=== PATIENT | female | born 1975 | race Two or more races ===

== ENCOUNTER → 2021-07-25 09:48 | Outpatient (BNVA) | payer OTHER, SELFPAY | PROVIDERS: PCP Nurse Practitioner Family; Referring Provider Nurse Practitioner Family; Visit Provider Physician Assistant ==

== ENCOUNTER → 2021-08-15 08:16 | Outpatient (BNVA) | payer OTHER, SELFPAY | PROVIDERS: PCP Nurse Practitioner Family; Visit Provider Surgery ==

== ENCOUNTER 2021-08-26 11:31 | Outpatient (REF) | payer OTHER, SELFPAY ==
--- NOTE | ~2021-08-26 | XR_ITS ---
EXAMINATION: XR CHEST CLINICAL INFORMATION: Morbid obesity. COMPARISON: None TECHNIQUE: 2 views of the chest were obtained. FINDINGS: Large body habitus. Lungs are well-inflated and clear. Trachea is midline in position. No interstitial disease, consolidation or mass. No pulmonary edema, pleural effusion or pneumothorax. Cardiac silhouette and pulmonary vessels are normal in size. The mediastinum and juan have normal contour. The visualized bones, and upper abdomen, are unremarkable. XR/XR chest 2V IMPRESSION: Lungs and mediastinum are normal. No acute cardiopulmonary abnormality.
--- NOTE | 2021-08-26 11:38 | ECG_ITS ---
Test Reason : obesity Blood Pressure : / mmHG Vent. Rate : 060 BPM Atrial Rate : 060 BPM P-R Int : 182 ms QRS Dur : 088 ms QT Int : 450 ms P-R-T Axes : 045 006 013 degrees QTc Int : 450 ms Poor data quality, interpretation may be adversely affected Normal sinus rhythm Normal ECG No previous ECGs available Referred By: Jaspal Kraus Electronically Signed By:KOSTA KHAN MD
[2021-08-26 12:02] LABS: MANUAL DIFF FLAG NO
[2021-08-26 12:39] LABS: Basophils Absolute Auto 0.1 X10*3/uL (0.0-0.2); Basophils Percent Auto 0.7 % (0-2); Eosinophils Absolute Auto 0.3 X10*3/uL (0.0-0.4); Hematocrit 42.5 % (37.0-47.0); Hemoglobin 13.7 g/dl (12.0-16.0); Imm Gran Abs Auto 0.02 X10*3/uL (0.00-0.03); Imm Gran Pct Auto 0.3 % (0.0-0.4); Lymphocytes Absolute Auto 2.2 X10*3/uL (1.2-4.9); Lymphocytes Percent Auto 29.2 % (20-40); Mean Corpuscular HGB Conc 32.2 g/dl (31.0-35.0); Mean Corpuscular Hemoglobin 26.9 pg (27.0-33.0); Mean Corpuscular Volume 83.3 fL (80.0-98.0); Mean Platelet Volume 10.1 fL (9.4-12.3); Monocytes Absolute Auto 0.3 X10*3/uL (0.1-1.2); Monocytes Percent Auto 4.2 % (2-11); Neutrophils Absolute Auto 4.7 x10*3/uL (2.0-8.3); Neutrophils Percent Auto 61.6 % (45-73); Platelet Count 293 X10*3/uL (160-400); Red Cell Distribution Width 13.1 % (11.0-16.0); White Blood Count 7.5 X10*3/uL (4.8-10.8)
[2021-08-26 12:55] LABS: Estimated Average Glucose 120 mg/dL; Hemoglobin A1c % 5.8 %
[2021-08-26 13:15] LABS: Alanine Aminotransferase 26 U/L (0-31); Albumin Level 4.5 g/dL (3.5-5.0); Alkaline Phosphatase 40 U/L (39-117); Anion Gap 14 (12-20); Aspartate Amino Transferase 18 U/L (5-31); Bilirubin Total 0.6 mg/dL (0.0-1.0); Blood Urea Nitrogen 13 mg/dL (9-16); Carbon Dioxide 27 mmol/L (22-29); Chloride 104 mmol/L (96-108); Cholesterol 156 mg/dL; Estimated Glomerular Filt Rate > 60; Glucose Random 92 mg/dL (60-115); HDL Cholesterol 28 mg/dL; Iron 97 mcg/dL (30-160); LDL Cholesterol Calculated 107 mg/dl; Percent Iron Saturation 28 % (15-50); Potassium 3.8 mmol/L (3.3-5.1); Sodium 141 mmol/L (135-145); Total Iron Binding Capacity 347 mcg/dL (228-428); Total Protein 7.3 g/dL (6.5-8.0); Triglycerides 106 mg/dL; Unsaturated Iron Binding 250 ug/dL
[2021-08-26 13:32] LABS: Insulin 13 uU/mL (2-29); Vitamin D 25-OH Total 19.2 ng/mL (>30)
[2021-08-26 13:45] LABS: Vitamin B12 289 pg/mL (200-900)
[2021-08-26 14:06] LABS: Ferritin 129 ng/mL (10-250)
[2021-08-27 16:41] LABS: Calcium (PTHI) 9.2 mg/dL (8.6-10.2); PTHI 74 pg/mL (14-64)
[2021-08-29 13:16] LABS: Vitamin B1 7 nmol/L (8-30)
[2021-08-29 14:31] LABS: Zinc 75 mcg/dL (60-130)
[2021-08-31 16:57] LABS: Vitamin A 46 mcg/dL (38-98)
== END 2021-08-26 11:32 | disposition home or self-care (01) ==
LOC: HO.XRAY 11:31
PROVIDERS: Visit Provider Surgery
DX: E66.01 Morbid (severe) obesity due to excess calories (principal)
CPT/HCPCS: 36415; 71046; 80053; 80061; 82306; 82607; 82728; 82746; 83036; 83525; 83540; 83970; 84425; 84443; 84590; 84630; 85025; 86140; 93005

== ENCOUNTER → 2021-09-17 07:59 | Outpatient (BNVA) | payer OTHER, SELFPAY | PROVIDERS: PCP Nurse Practitioner Family; Visit Provider Surgery ==

== ENCOUNTER → 2021-09-19 08:14 | Outpatient (BNVA) | payer OTHER, SELFPAY | PROVIDERS: PCP Nurse Practitioner Family; Visit Provider Dietitian, Registered | DX: E66.01 Morbid (severe) obesity due to excess calories (principal); Z68.41 Body mass index [BMI] 40.0-44.9, adult | CPT/HCPCS: 97802 ==

== ENCOUNTER → 2021-09-29 09:48 | Outpatient (BNVA) | payer OTHER, SELFPAY | PROVIDERS: PCP Nurse Practitioner Family; Referring Provider Surgery; Visit Provider Dietitian, Registered ==

== ENCOUNTER 2021-09-30 08:50 | Outpatient (REF) | payer OTHER, SELFPAY ==
--- NOTE | ~2021-09-30 | US_ITS ---
EXAMINATION: US COMPLETE ABDOMEN WITH LIVER ELASTOGRAPHY CLINICAL INFORMATION: Morbid obesity COMPARISON: None. TECHNIQUE: Real-time imaging of the abdominal viscera. Noninvasive ultrasound liver fibrosis assessment is performed using Li ElastPQ point quantification shear wave elastography (pSWE) with a C5-2 MHz transducer. Multiple elastography samples are obtained. FINDINGS: PANCREAS: Normal. The visualized pancreatic head and body are normal in appearance. The remainder of the pancreas is obscured from visualization by the overlying bowel gas. ABDOMINAL AORTA: The proximal, middle, and distal aortic segments are normal in caliber. INFERIOR VENA CAVA: Visualized portions are normal. LIVER: The liver is prominent in size measuring 19 cm in vertical span. No focal lesion or intrahepatic biliary duct dilatation. There is diffusely increased echogenicity of the liver consistent with fatty infiltration. The right lobe measures 19 cm in length. The left lobe measures 11.2 cm in length. Portal flow is hepatopedal Shear wave liver elastography median stiffness is 1.68 m/s (reference: normal median stiffness is 1.3 m/s or less). IQR/median stiffness to assess sampling precision is 0.18 (reference: good quality data set is IQR/median stiffness of 0.15 or less). GALLBLADDER: Status post cholecystectomy. COMMON BILE DUCT: Normal in caliber measuring 0.4 cm in diameter. RIGHT KIDNEY: Normal. No hydronephrosis. No renal calculi or focal parenchymal lesions. The kidney measures 12.3 cm in maximum dimension. LEFT KIDNEY: Normal. No hydronephrosis. No renal calculi or focal parenchymal lesions. The kidney measures 13 cm in maximum dimension. SPLEEN: Prominent in size. The spleen measures 12 cm in maximum dimension. FREE FLUID: None. US/US abdomen comp w elastography IMPRESSION: 1. Fatty infiltration of the liver. 2. Liver elastography: In the absence of other known clinical signs, measurements rule out compensated advanced chronic liver disease. If there are known clinical signs, further testing may be needed for confirmation. REFERENCE: Society of Radiologists in Ultrasound Liver Stiffness Thresholds (2020): LIVER STIFFNESS THRESHOLDS: *Liver Stiffness equal or less than 1.3 m/s: High probability of being normal. *Liver Stiffness less than 1.7 m/s: In the absence of other known clinical signs, rules out compensated advanced chronic liver disease. *Liver Stiffness 1.7-2.1 m/s: Suggestive of compensated advanced chronic liver disease but need further test for confirmation. *Liver Stiffness over 2.1 m/s: Rules in compensated advanced chronic liver disease. *Liver Stiffness over 2.4 m/s: Suggestive of clinically significant portal hypertension. QUALITY OF DATA SET: *IQR/Median value equal or less than 0.15 implies a quality data set. *IQR/Median value over 0.15 implies a poor quality data set. SIGNIFICANT CHANGE FROM PRIOR EXAM: Significant change if liver stiffness measurement is 10% or greater from prior exam. OTHER CONSIDERATIONS: The stage of liver fibrosis may be overestimated in the setting of acute hepatitis, liver inflammation, elevated liver function tests, hepatic vascular congestion, obstructive cholestasis, non-fasting state, and infiltrative diseases such as amyloidosis and lymphoma. In some patients with NAFLD, the liver stiffness thresholds for compensated advanced chronic liver disease may be lower. In causes other than viral hepatitis and NAFLD, liver stiffness thresholds are not well established.
== END 2021-09-30 08:51 | disposition home or self-care (01) ==
LOC: HO.US 08:50
PROVIDERS: PCP Nurse Practitioner Family; Visit Provider Surgery
DX: E66.01 Morbid (severe) obesity due to excess calories (principal)
CPT/HCPCS: 76705; 76981

== ENCOUNTER → 2021-10-06 09:49 | Outpatient (BNVA) | payer OTHER, SELFPAY | PROVIDERS: PCP Nurse Practitioner Family; Referring Provider Surgery; Visit Provider Dietitian, Registered ==

== ENCOUNTER → 2021-10-13 10:42 | Outpatient (BNVA) | payer OTHER, SELFPAY | PROVIDERS: PCP Nurse Practitioner Family; Referring Provider Physician Assistant; Visit Provider Dietitian, Registered | DX: E66.01 Morbid (severe) obesity due to excess calories (principal) | CPT/HCPCS: 97803 ==

== ENCOUNTER → 2021-10-20 07:54 | Outpatient (BNVA) | payer OTHER, SELFPAY | PROVIDERS: PCP Nurse Practitioner Family; Visit Provider Surgery ==

== ENCOUNTER → 2021-10-24 08:11 | Outpatient (BNVA) | payer OTHER, SELFPAY | PROVIDERS: PCP Nurse Practitioner Family; Referring Provider Surgery; Visit Provider Dietitian, Registered | DX: E66.9 Obesity, unspecified (principal); Z68.38 Body mass index [BMI] 38.0-38.9, adult | CPT/HCPCS: 97803 ==

== ENCOUNTER 2021-10-28 09:51 | Outpatient (REF) | payer OTHER, SELFPAY ==
[2021-10-30 14:49] LABS: H Pylori Breath Test Negative (Negative)
== END 2021-10-28 09:52 | disposition home or self-care (01) ==
LOC: HO.LNP 09:51
PROVIDERS: Visit Provider Surgery
DX: E66.01 Morbid (severe) obesity due to excess calories (principal)
CPT/HCPCS: 83013; 99211

== ENCOUNTER → 2021-10-29 10:38 | Outpatient (BNVA) | payer OTHER, SELFPAY | PROVIDERS: PCP Nurse Practitioner Family; Referring Provider Nurse Practitioner Family; Visit Provider Physician Assistant Surgical ==

== ENCOUNTER → 2021-11-06 13:41 | Outpatient (BNVA) | payer OTHER, SELFPAY | PROVIDERS: PCP Nurse Practitioner Family; Referring Provider Nurse Practitioner Family; Visit Provider Physician Assistant Surgical ==

== ENCOUNTER 2021-11-17 08:35 | Outpatient (REF) | payer OTHER, SELFPAY ==
--- NOTE | ~2021-11-17 | FL_ITS ---
EXAMINATION: XR GI SERIES CLINICAL INFORMATION: Morbid/severe obesity due to excess calories. COMPARISON: None. TECHNIQUE: Routine upper GI air-contrast study was performed. FINDINGS: Following oral administration of thick barium and effervescent granules, there is normal propagation of bolus from the oral cavity through the pharynx and esophagus and into the stomach without any evidence of obstruction, narrowing or stricture. On placing patient supine and prone lying, the course, caliber and peristalsis of the stomach and the duodenum are normal. No gastroesophageal reflux or hiatal hernia seen. The mucosal pattern of the stomach, duodenum and esophagus is normal. Incidental finding of russell in the right upper quadrant, likely cholecystitis. FLUOROSCOPY TIME: 2.6 minutes. DOSE AREA PRODUCT: 35.361 uGy-m2 (microgray-meter squared). FL/FL upper GI series IMPRESSION: Unremarkable upper GI examination.
== END 2021-11-17 08:36 | disposition home or self-care (01) ==
LOC: HO.XRAY 08:35
PROVIDERS: PCP Nurse Practitioner Family; Visit Provider Surgery
DX: Z01.818 Encounter for other preprocedural examination (principal); E66.01 Morbid (severe) obesity due to excess calories; I10 Essential (primary) hypertension; K21.9 Gastro-esophageal reflux disease without esophagitis; Z68.38 Body mass index [BMI] 38.0-38.9, adult; R11.0 Nausea; Z71.3 Dietary counseling and surveillance; Z79.899 Other long term (current) drug therapy
CPT/HCPCS: 74240

== ENCOUNTER → 2021-11-27 09:06 | Outpatient (BNVA) | payer OTHER, SELFPAY | PROVIDERS: PCP Nurse Practitioner Family; Referring Provider Nurse Practitioner Family; Visit Provider Surgery ==

== ENCOUNTER 2021-12-04 11:10 | Day surgery (SDC) | payer OTHER, SELFPAY ==
[2021-11-26 09:09] VITALS: BMI 38.2
[2021-11-27 12:28] LABS: MANUAL DIFF FLAG NO
[2021-11-27 13:03] LABS: Basophils Absolute Auto 0.1 X10*3/uL (0.0-0.2); Basophils Percent Auto 0.6 % (0-2); Eosinophils Absolute Auto 0.2 X10*3/uL (0.0-0.4); Eosinophils Percent Auto 1.8 % (0-4); Hematocrit 43.9 % (37.0-47.0); Hemoglobin 13.8 g/dl (12.0-16.0); Imm Gran Abs Auto 0.02 X10*3/uL (0.00-0.03); Imm Gran Pct Auto 0.2 % (0.0-0.4); Lymphocytes Absolute Auto 2.1 X10*3/uL (1.2-4.9); Lymphocytes Percent Auto 24.8 % (20-40); Mean Corpuscular HGB Conc 31.4 g/dl (31.0-35.0); Mean Corpuscular Hemoglobin 26.4 pg (27.0-33.0); Mean Corpuscular Volume 84.1 fL (80.0-98.0); Monocytes Absolute Auto 0.4 X10*3/uL (0.1-1.2); Monocytes Percent Auto 4.8 % (2-11); Neutrophils Absolute Auto 5.7 x10*3/uL (2.0-8.3); Neutrophils Percent Auto 67.8 % (45-73); Platelet Count 274 X10*3/uL (160-400); Red Blood Count 5.22 X10*6/uL (4.20-5.50); Red Cell Distribution Width 14.2 % (11.0-16.0); White Blood Count 8.4 X10*3/uL (4.8-10.8)
[2021-11-27 13:18] LABS: INTERNATIONAL NORM RATIO 1.2 (0.9-1.1); Prothrombin Time 13.1 SEC (9.9-13.0)
[2021-11-27 13:20] LABS: Estimated Average Glucose 114 mg/dL; Hemoglobin A1c % 5.6 %
[2021-11-27 13:21] LABS: Partial Thromboplastin Time 46.8 SEC (24.1-38.0)
[2021-11-27 13:44] LABS: Anion Gap 13 (12-20); Blood Urea Nitrogen 17 mg/dL (9-16); Carbon Dioxide 28 mmol/L (22-29); Chloride 103 mmol/L (96-108); Potassium 3.9 mmol/L (3.3-5.1); Sodium 140 mmol/L (135-145)
[2021-11-27 13:45] LABS: Alanine Aminotransferase 17 U/L (0-31); Albumin Level 4.5 g/dL (3.5-5.0); Alkaline Phosphatase 41 U/L (39-117); Aspartate Amino Transferase 9 U/L (5-31); Bilirubin Total 0.7 mg/dL (0.0-1.0); C Reactive Protein 0.75 mg/dL (< or = 0.50); Calcium 9.2 mg/dL (8.4-10.2); Cholesterol 202 mg/dL; Creatinine Clr Calc Pharmacy 101.5; Estimated Glomerular Filt Rate > 60; Glucose Random 86 mg/dL (60-115); HDL Cholesterol 34 mg/dL; LDL Cholesterol Calculated 146 mg/dl; Total Protein 7.3 g/dL (6.5-8.0); Triglycerides 111 mg/dL
[2021-11-27 13:54] LABS: Insulin 8 uU/mL (2-29)
--- NOTE | 2021-11-28 23:03 | MHC.SHP ---
Pre-Procedural Eval Section A Date of Service: 11/28/21 The patient is an INPATIENT: No The History & Physical has been completed within 30 days and I have reviewed it.: Yes Section B Chief Complaint: obesity Relevant Family History (Specify if Yes): No Relevant Social History: None Present Medications: None Medical History: No relevant PMH History of Previous Operations: No relevant previous surgery Allergies: Allergies Allergy/AdvReac Type Severity Reaction Status Date / Time No Known Allergies Allergy Verified 11/17/21 11:18 Review of Systems Sugical H&P ROS: Negative: Constitution, Cardiovascular, Respiratory, Neurological, Psychiatric, Hem-Onc, Allergic/Immunologic, Gastrointestinal, Genitourinary, Musculoskeletal, Integumentary, Endocrine and Eyes/Ears/Nose/Throat Exam Surgical H&P Exam: Normal: HEENT, Normal: Heart, Normal: Lungs, Normal: Extremities, Normal: Abdomen, Normal: Skin and Normal: Neurological Plan Diagnosis/Plan: Unchanged I have reviewed the history and physical and performed a pertinent physical examination on my patient. No changes have occurred unless specified.
--- NOTE | 2021-12-03 10:38 | P.CONAN_ITS ---
Documented by User: Deja Stevens NP 12/03/21 10:39 HPI - Anesthesia Eval Consult details Narrative: 46yo F for Gastrectomy Sleeve,EGD,poss diaphragmatic hernia,poss ventral hernia,poss open, PMFSH Active Problems Active Problems: All Active Problems (Updated 11/26/21 @ 09:07 by Vesta Tony RN) Vitamin B1 deficiency (Acute) Vitamin D deficiency (Acute) Vitamin B12 deficiency (Acute) Adjustment disorder, unspecified (Acute) Obesity (Acute) BMI 38.0-38.9,adult (Acute) BMI 37.0-37.9, adult (Acute) Leg pain (Acute) Back pain (Acute) Hypertension (Acute) GERD (gastroesophageal reflux disease) (Acute) Morbid obesity (Acute) Past Medical History Medical History Back pain COVID-19 vaccine series completed GERD (gastroesophageal reflux disease) Hypertension Leg pain Morbid obesity Surgical History Surgical History H/O umbilical hernia repair History of Hx laparoscopic cholecystectomy Social History Social History Are you a primary patient care assistant to a significant other at home: No Do you presently have visiting nurse or other home services: No Alcohol intake: never Patient Tobacco Use Status: Never used Tobacco Meds Allergies Allergy/AdvReac Type Severity Reaction Status Date / Time No Known Allergies Allergy Verified 12/04/21 11:26 Home Medications Medication Instructions Recorded Confirmed Last Taken Type famotidine 20 mg tablet 20 mg PO DAILY 08/15/21 12/04/21 11/13/21 History gabapentin 100 mg capsule 100 mg PO DAILY 08/15/21 12/04/21 11/20/21 History hydrochlorothiazide 25 mg tablet 25 mg PO DAILY 08/15/21 12/04/21 11/30/21 History sucralfate 1 gram tablet 1 g PO QIDACHS 08/15/21 11/17/21 Unknown History topiramate 50 mg capsule 50 mg PO DAILY 08/15/21 12/04/21 11/06/21 History sprinkle,extended release 24 hr Exam Exam Date and Time: December 03, 2021 1038 Height,Weight and Vital Signs: Height 5 ft 3 in Weight 97.976 kg Pertinent Lab Results Pertinent Lab Results: Laboratory Tests 11/27/21 11/27/21 11/27/21 12:15 12:15 12:15 WBC 8.4 RBC 5.22 Hgb 13.8 Hct 43.9 MCV 84.1 MCH 26.4 L MCHC 31.4 RDW 14.2 Plt Count 274 MPV 10.0 Immature Gran % (Auto) 0.2 Neut % (Auto) 67.8 Lymph % (Auto) 24.8 Alexander % (Auto) 4.8 Eos % (Auto) 1.8 Baso % (Auto) 0.6 Lymph # (Auto) 2.1 Alexander # (Auto) 0.4 Eos # (Auto) 0.2 Baso # (Auto) 0.1 Abs Immat Gran (auto) 0.02 Absolute Neuts (auto) 5.7 Absolute Nucleated RBC 0.000 Nucleated RBC % (auto) 0.0 PT 13.1 H INR 1.2 H APTT 46.8 H Sodium 140 Potassium 3.9 Chloride 103 Carbon Dioxide 28 Anion Gap 13 BUN 17 H Creatinine 0.78 Estim Creat Clear Calc 101.5 Estimated GFR > 60 Random Glucose 86 Estimat Average Glucose Hemoglobin A1c % Insulin Level 8 Calcium 9.2 Total Bilirubin 0.7 AST 9 D ALT 17 Alkaline Phosphatase 41 C-Reactive Protein 0.75 H Total Protein 7.3 Albumin 4.5 Triglycerides 111 Cholesterol 202 D LDL Cholesterol, Calc 146 HDL Cholesterol 34 D TSH 0.60 Blood Type Antibody Screen 11/27/21 11/27/21 12:15 12:15 WBC RBC Hgb Hct MCV MCH MCHC RDW Plt Count MPV Immature Gran % (Auto) Neut % (Auto) Lymph % (Auto) Alexander % (Auto) Eos % (Auto) Baso % (Auto) Lymph # (Auto) Alexander # (Auto) Eos # (Auto) Baso # (Auto) Abs Immat Gran (auto) Absolute Neuts (auto) Absolute Nucleated RBC Nucleated RBC % (auto) PT INR APTT Sodium Potassium Chloride Carbon Dioxide Anion Gap BUN Creatinine Estim Creat Clear Calc Estimated GFR Random Glucose Estimat Average Glucose 114 Hemoglobin A1c % 5.6 Insulin Level Calcium Total Bilirubin AST ALT Alkaline Phosphatase C-Reactive Protein Total Protein Albumin Triglycerides Cholesterol LDL Cholesterol, Calc HDL Cholesterol TSH Blood Type AB Positive Antibody Screen NEGATIVE Narrative Narrative: EKG 08/2021 Vent. Rate : 060 BPM ? ? Atrial Rate : 060 BPM ?? P-R Int : 182 ms? QRS Dur : 088 ms ? ? QT Int : 450 ms ? ? ? P-R-T Axes : 045 006 013 degrees ?? QTc Int : 450 ms ? Poor data quality, interpretation may be adversely affected Normal sinus rhythm Normal ECG No previous ECGs available Assessment and Plan Assessment Anesthesia Assessment: Chart Reviewed Documented by User: Michelle Mariscal MD 12/04/21 12:34 [facility] Active Problems Active Problems: All Active Problems (Updated 11/26/21 @ 09:07 by Vesta Tony RN) Vitamin B1 deficiency (Acute) Vitamin D deficiency (Acute) Vitamin B12 deficiency (Acute) Adjustment disorder, unspecified (Acute) Obesity (Acute) BMI 38.0-38.9,adult (Acute) BMI 37.0-37.9, adult (Acute) Leg pain (Acute) Back pain (Acute) Hypertension (Acute). No medications for several months since losing weight but took 1 pill few days ago because anxious and BP went up GERD (gastroesophageal reflux disease) (Acute) Morbid obesity (Acute) Snoring but no sleep study Past Medical History Medical History Back pain COVID-19 vaccine series completed GERD (gastroesophageal reflux disease) Hypertension Leg pain Morbid obesity Family History Family history of problems with anesthesia: No Surgical History Surgical History H/O umbilical hernia repair History of Hx laparoscopic cholecystectomy History of Problems with Anesthesia: Yes (PONV) Social History Social History Are you a primary patient care assistant to a significant other at home: No Do you presently have visiting nurse or other home services: No Alcohol intake: never Patient Tobacco Use Status: Never used Tobacco Meds Allergies Allergy/AdvReac Type Severity Reaction Status Date / Time No Known Allergies Allergy Verified 12/04/21 11:26 Home Medications Medication Instructions Recorded Confirmed Last Taken Type famotidine 20 mg tablet 20 mg PO DAILY 08/15/21 12/04/21 11/13/21 History gabapentin 100 mg capsule 100 mg PO DAILY 08/15/21 12/04/21 11/20/21 History hydrochlorothiazide 25 mg tablet 25 mg PO DAILY 08/15/21 12/04/21 11/30/21 History sucralfate 1 gram tablet 1 g PO QIDACHS 08/15/21 11/17/21 Unknown History topiramate 50 mg capsule 50 mg PO DAILY 08/15/21 12/04/21 11/06/21 History sprinkle,extended release 24 hr Exam Height,Weight and Vital Signs: Height 5 ft 3 in Weight 97.976 kg Vital Signs Temp Pulse Resp BP Pulse Ox 12/04/21 11:33 98.0 F 70 16 145/98 H 100 Pertinent Lab Results Pertinent Lab Results: Laboratory Tests 11/27/21 11/27/21 11/27/21 12:15 12:15 12:15 WBC 8.4 RBC 5.22 Hgb 13.8 Hct 43.9 MCV 84.1 MCH 26.4 L MCHC 31.4 RDW 14.2 Plt Count 274 MPV 10.0 Immature Gran % (Auto) 0.2 Neut % (Auto) 67.8 Lymph % (Auto) 24.8 Alexander % (Auto) 4.8 Eos % (Auto) 1.8 Baso % (Auto) 0.6 Lymph # (Auto) 2.1 Alexander # (Auto) 0.4 Eos # (Auto) 0.2 Baso # (Auto) 0.1 Abs Immat Gran (auto) 0.02 Absolute Neuts (auto) 5.7 Absolute Nucleated RBC 0.000 Nucleated RBC % (auto) 0.0 PT 13.1 H INR 1.2 H APTT 46.8 H Sodium 140 Potassium 3.9 Chloride 103 Carbon Dioxide 28 Anion Gap 13 BUN 17 H Creatinine 0.78 Estim Creat Clear Calc 101.5 Estimated GFR > 60 Random Glucose 86 Estimat Average Glucose Hemoglobin A1c % Insulin Level 8 Calcium 9.2 Total Bilirubin 0.7 AST 9 D ALT 17 Alkaline Phosphatase 41 C-Reactive Protein 0.75 H Total Protein 7.3 Albumin 4.5 Triglycerides 111 Cholesterol 202 D LDL Cholesterol, Calc 146 HDL Cholesterol 34 D TSH 0.60 Blood Type Antibody Screen 11/27/21 11/27/21 12:15 12:15 WBC RBC Hgb Hct MCV MCH MCHC RDW Plt Count MPV Immature Gran % (Auto) Neut % (Auto) Lymph % (Auto) Alexander % (Auto) Eos % (Auto) Baso % (Auto) Lymph # (Auto) Alexander # (Auto) Eos # (Auto) Baso # (Auto) Abs Immat Gran (auto) Absolute Neuts (auto) Absolute Nucleated RBC Nucleated RBC % (auto) PT INR APTT Sodium Potassium Chloride Carbon Dioxide Anion Gap BUN Creatinine Estim Creat Clear Calc Estimated GFR Random Glucose Estimat Average Glucose 114 Hemoglobin A1c % 5.6 Insulin Level Calcium Total Bilirubin AST ALT Alkaline Phosphatase C-Reactive Protein Total Protein Albumin Triglycerides Cholesterol LDL Cholesterol, Calc HDL Cholesterol TSH Blood Type AB Positive Antibody Screen NEGATIVE Laboratory Results - last 24 hr 12/03/21 12/04/21 12:25 11:11 Urine Test NEGATIVE COVID-19 (ELAYNE) Negative COVID-19 Clin Com See Note Airway Mallampati Class: II TM Dist: >3cm Neck ROM: Full Loose/Missing/Broken Teeth: Yes (Some missing) Heart: RRR Lungs: CTAB Assessment and Plan Assessment Anesthesia Assessment: Anesthesia Plan Discussed Final Anesthetic Review Family History of Problems with Anesthesia: No History of Problems with Anesthesia: Yes (PONV) NPO: Yes ASA Class: III Final Preanesthetic Review: No Changes in Pt Med Stat, Meds/Allgs Chart Reviewed, Consent Obtained/Reviewed and Anes Risks/Benef Reviewed Patient Risk: Intermediate Procedure Risk: Intermediate Assessment/Block/Sedation in SS: Assess/Block/Sedation-SS Anesthetic Plan Anesthetic Plan: GA Disposition: Standard PACU and Inp. Admit - Standard Bed
[2021-12-03 12:56] LABS: COVID-19 Test Negative (Negative); IDNOW Serial# 9DD0AD1C
[2021-12-04] VITALS (21 sets, daily range): BP systolic 145–183; BP diastolic 83–117; PULSE 59–103; RESP 14–19; TEMP 36.2–37; O2SAT 95–100
[2021-12-04 11:31] LABS: UPreg QC Valid YES; Urine Pregnancy NEGATIVE (NEGATIVE)
[2021-12-04] MEDS: Scopolamine 1.5 MG PATCH.TD.3 TRANSDERMA (12:47)
--- NOTE | 2021-12-04 15:59 | PM.OP ---
Brief Operative Note Date of Service: 12/04/21 Pre-op diagnosis: Severe obesity with comorbidities (see below) Post-op diagnosis: same Procedure: INITIAL PATIENT BMI ON PRESENTATION AT OUR OFFICE: 44.1 kg/m2 LAST BMI BEFORE SURGERY: 37.5 kg/m2 COMORBIDITIES: GERD, hypertension, back pain, liver steatosis, leg pain, liver fibrosis ?The patient presented to the Weight Management Program with significant obesity that was negatively impacting the patient's comorbidities as listed above.? The program is a phased program with a special focus on preoperative medical weight management to promote substantial weight loss and prepare the patients for the second phase of the program: bariatric surgery. The patient participated in an intensive weekly lifestyle ?intervention and exercise program during which the patient ?has lost between the initial office visit and the last preoperative visit 32 lbs, or 12.86% of initial actual body weight. It was deemed appropriate for the patient to now have bariatric surgery. In light of the current Covid-19 pandemic and the well documented strong association of obesity and increased risk of worse outcomes if infected with Covid-19 (REFERENCES:https://pubmed.ncbi.nlm.nih.gov/93651203/,?https://pubmed.ncbi.nlm.nih.gov/10293054/), any delay in undergoing bariatric surgery may lead to the patient's worsening health condition and increased?risk of more severe Covid-19 disease if infected. In addition a recent?study from [facility] published in [employer] on 10/13/2021 ([email or web address]) found that, among patients with obesity, substantial weight loss achieved with surgery was associated with improved outcomes of COVID-19 infection. The findings suggest that obesity can be a modifiable risk factor for the severity of COVID-19 infection. In addition, the patient met the BMI-criteria for bariatric surgery based on the BMI on initial presentation. The patient should not be penalized for achieving such weight loss because ?it is not sustainable long-term without surgical intervention and it was achieved in preparation for bariatric surgery ?under my direction and based on my published research ([email or web address]).[email or web address] and?https://www.soard.org/article/F6593-1757(47)86384-X/pdf) ?that a 10% preoperative weight loss improves long-term weight loss after surgery and reduces perioperative complications.? Insurance carriers such as [facility] have endorsed my recommendations ?and have included in their policies criteria to include a 10% preoperative weight loss requirement. PROCEDURE: Esophago-gastroscopy, laparoscopic sleeve gastrectomy and laparoscopic gastropexy INDICATIONS: This is a 46 year-old female who was electively scheduled for laparoscopic, possibly open sleeve gastrectomy. The risks and complications of the procedure were discussed with the patient in advance, particularly the possibility of ; pulmonary embolism; staple line leak; bleeding; GERD; cardiac, pulmonary, or renal complications; as well as long-term problems such as insufficient weight loss, vitamin deficiency, strictures, or ulcers. The patient understood all the risks, and was in agreement to proceed with surgery. DESCRIPTION OF PROCEDURE: After informed consent was obtained from the patient, the patient was given preoperative antibiotics, and was transferred to the operating room. After successful induction of general anesthesia, pneumatic compression devices were placed on both lower extremities. An upper endoscopy was performed next. The oropharynx and esophagus appeared to be within normal limits. There was no diaphragmatic hernia present consistent with the findings of the preoperative upper GI. The stomach was entered. Then after all fluid and air were suctioned and the stomach was fully decompressed, the scope was withdrawn and secured in the mid esophagus. The patient was then prepped and draped in the usual sterile manner, and abdominal access was established at the right upper quadrant with the Jayde technique. A 12 mm blunt port was inserted, and the abdomen was insufflated with CO2 to a pressure of 15 mmHg. Under direct visualization, additional ports were placed, specifically two 5 mm Versi-step ports to the left upper quadrant, and a 5 mm Versi-Step port to the right upper quadrant. 1% lidocaine plain was used to infiltrate all port sites as well as all fascia defects. There were adhesions in the abdomen from previous laparoscopic ventral hernia involving the omentum and the anterior abdominal wall. Those were not lysed as they did not interfere with our procedure.. Following that, the patient was placed in a steep reverse Trendelenburg position. An additional 5 mm port was placed to the right flank for the Mediflex retractor that was used to retract the left lobe of the liver. The gastro-esophageal fat pad was opened with the ultrasonic device (Thunderbeat, Olympus) and the anterior esophagus and hiatus were exposed. The angle of His was opened with the ultrasonic device the fundus of the stomach from any diaphragmatic and splenic attachments. I then opened the gastrocolic ligament between the transverse colon and the greater curvature of the stomach with the ultrasonic device to enter the lesser sac and facilitate the ligation of the short gastric vessels. I started at a mid-point along the greater curvature and using the Thunderbeat, all short gastric vessels were divided all the way to the angle of His until the left toni was completely dissected at its entirety. I then divided the gastro-colic ligament distally to a distance of about 3-4 cm proximal to the esophagus. The stomach was then divided transversely with one Endo CONG-45 purple, one CONG-45 orange loads and four CONG-60 articulating orange loads using the AEON stapler and loads. Every effort was made that the gastric sleeve had a tubular shape and an even caliber throughout. Once the sleeve resection was completed, the staple line of the gastric sleeve was reinforced with Hemoclips. The resected stomach was retrieved without difficulty from the Jayde port. A gastropexy was then performed in order to prevent postoperative GERD and partial gastric volvulus. Several interrupted 2.0 Surgidac sutures were placed between the sleeve's staple line and the previously divided greater omentum and gastro-colic ligament using the Endo-Stitch device. ?An upper endoscopy was performed. There was no narrowing at the GE junction. The scope was easily advanced all the way to the pylorus which was clearly visualized. There was no narrowing anywhere and the sleeve's caliber was even throughout. The sleeve's staple line was inspected and there was no evidence of ischemia, bleeding or dehiscence. At that point the gastroscope was withdrawn from the patient?s mouth while we were decompressing the bowel and the stomach from any remaining air. I looked into the lesser sac to see how the sleeve was situating and it was situating well. There was no bleeding from the staple line, spleen, or short gastric vessels. The Mediflex retractor was removed, and the undersurface of the liver was inspected and there was no bleeding. The patient was placed in supine position. I closed the fascial defect of the 12 mm port site with a figure of eight #1 Polysorb suture. Then 100 cc 0.25 % Marcaine plain with 10 mg of Dexamethasone were used to infiltrate the fascial closure as well as all skin incisions. At this point, the abdomen was deflated, all ports were removed under direct vision, and no bleeding was noted from any of the port sites. The skin incisions were irrigated with saline and were closed with 4-0 absorbable monofilament sutures. Steri-Strips and OpSites were used to cover all incisions. The patient was extubated and was transferred in stable condition to the recovery room for further care. I was present and performed all gomez parts of the procedure. Mr. Reeves was the corporate administrative assistant. There were no residents to assist with this case. David Kraus MD, PhD, FACS Surgeon: Jaspal Kraus MD Anesthesia: GETA, local and other (TAP block) Was an Service Dog Trainer used for this Procedure?: Yes Service Dog Trainer: Nikita Reeves Estimated blood loss (mL): 10 IV fluids (mL): 3,000 Urine output (mL): 0 (No Winter to record) Pathology: other (Stomach) Condition: stable Disposition: PACU
--- NOTE | 2021-12-04 16:04 | P.DS_ITS ---
DS: Providers Provider Date of Service: 12/05/21 Primary care physician: Laureen Hicks NP DS: Summary Hospital Course Hospital Course: ADMITTING DIAGNOSIS: morbid obesity, GERD, HTN ? DISCHARGE DIAGNOSIS: same, s/p laparoscopic sleeve gastrectomy ? PAST SURGICAL HISTORY: laparoscopic cholecystectomy, umbilical hernia repair, cesarian section ? PROCEDURE: upper endoscopy, laparoscopic sleeve gastrectomy, gastropexy ? DISCHARGE SUMMARY: ? History of Present Illness: ? The patient is a?46 year-old woman with a BMI of?44 kg/m2 and associated co- morbidities as described above. The patient had extensive work-up,lost?27.5 lbs preoperatively and was electively scheduled for laparoscopic, possible open sleeve gastrectomy and gastropexy. Risks and complications of the surgery were discussed with the patient in advance, particularly the possibility of , pulmonary embolism, anastomotic leak, bleeding, bowel injury, GERD, cardiac, renal or pulmonary complications. The patient understood all the risks and was in agreement with the surgical plan. ? Hospital Course: ? The patient underwent an uneventful laparoscopic sleeve gastrectomy with gastropexy on the day of admission. Postoperatively, the patient was transferred to the surgical floor. The patient received IV Acetaminophen and IV dilaudid for pain control. Patient was started on bariatric phase 1 diet POD #0. On postoperative day one, the patient was feeling well without nausea, vomiting, fevers, or tachycardia. The patient had some mild incisional pain and the abdomen was soft. ? On the morning of postoperative day one, the patient was continued on 1 ounce of water or ice every half hour. During the day, the patient did fairly well, having some incisional pain, but able to ambulate adequately and to tolerate liquids well. ? Since the patient is doing well, we decided that the patient was ready to be discharged. The patient was given instructions to follow-up with me next week and to call my office for any fever over 101, persistent abdominal pain, nausea, vomiting, GERD, symptoms of DVT such as calf tenderness, or leg swelling, or pulmonary embolism such as chest pain or shortness of breath. The patient was also instructed to drink 40-60 ounces of liquids per day using the 1-ounce cups. The patient had been given prescriptions for Tylenol for pain, Zofran prn for nausea, and pantoprazole and carafate previously. The patient was encouraged to ambulate and use the incentive spirometer. The patient was allowed to shower, but no baths, and encouraged to stay active at home. All of these instructions were given to the patient personally. All questions were answered and the patient understood all instructions, the instructions were also given to the patient in print. Time Spent with Patient Time attestation: Total time spent providing and/or coordinating discharge services: Discharge coordination time: Less than 30 minutes Quality: Stroke Does the patient have a stroke diagnosis?: No Physical Exam Vital Signs: Vital Signs: Last Vital Signs Temp 98.0 F 12/04/21 11:33 Pulse 70 12/04/21 11:33 Resp 16 12/04/21 11:33 BP 145/98 H 12/04/21 11:33 Pulse Ox 100 12/04/21 11:33 BMI result Body Mass Index 38.2 DS: Data Data Completed and Pending Pending studies at discharge: Pending at discharge 12/04/21 15:26 Surgical [PTH] Routine Labs on day of discharge: Laboratory Results - last 24 hr 12/04/21 11:11 Urine Test NEGATIVE Discharge Plan Discharge Patient Disposition: Home, Self-Care Referrals: Laureen Hicks MOTORCYCLE ASSEMBLER [Primary Care Provider] - 1 Week Discharge Medications: Continued pantoprazole 40 mg tablet,delayed release (DR/EC) 40 mg PO DAILY Qty: 30 2RF Held hydrochlorothiazide 25 mg tablet 25 mg PO DAILY 0RF Hold Instructions: until discussed with Dr Kraus Discontinued gabapentin 100 mg capsule 100 mg PO DAILY 0RF famotidine 20 mg tablet 20 mg PO DAILY 0RF sucralfate 1 gram tablet 1 g PO QIDACHS 0RF topiramate 50 mg cap,sprinkle,ER 24hr dose pack 50 mg PO DAILY 0RF thiamine HCl (vitamin B1) 100 mg tablet 100 mg PO DAILY Qty: 30 2RF cholecalciferol (vitamin D3) 125 mcg (5,000 unit) capsule 125 mcg PO DAILY Qty: 30 2RF mecobalamin (vitamin B12) 1,000 mcg tablet,disintegrating 1,000 mcg sublingual DAILY Qty: 30 2RF Rx Instructions: place tablet under tongue and allow to dissolve for at least30 secs before swallowing polyethylene glycol 3350 [Miralax] 17 gram powder in packet 17 g PO DAILY Qty: 14 0RF Rx Instructions: Mix each packet with 8oz of water and do 7 packets on 12/02/21 and another 7 packets on 12/03/21 Discharge Orders: Discharge Order (Routine); Ordered 12/05/21 Ordered By: Jaspal Kraus Activity Restrictions/Additional Instructions: No tub baths, sex or returning to work until discussed at first post op appointment. No exercise, alcohol, tobacco or illegal drug use. Continue to use incentive spirometer hourly while awake. Walk in home for 5- 10 minutes every 2 hours during the first week. Follow all instructions in the bariatric handbook and call with any questions.Discharge Instructions 1. Please call your doctor or come back to the emergency room should any new symptoms arise. 2. You will receive a courtesy call from [facility] 24-48 hours after discharge. 3. Activity: abstain from alcohol, practice limited stair climbing, no bending, no driving, no exercise, no illicit substances, no lifting, no sex, no tub bath, no work. 4. Diet: continue as discussed with Dr. Kraus. 5. Dressing Change/Wound Care: Your incision is covered by clear bandages and guaze underneath. If the area is tender, you may apply an ice pack for short intervals (no more than 20 minutes on, followed by at least 20 minutes off). Do not apply heat. Do not use creams, lotions, or topical antibiotics unless instructed to do so by your surgeon. These can cause infection or allergic reaction. 6. Call your doctor if: - Your temperature exceeds 101.5 F - You experience excessive pain or swelling - You have an unexpected reaction to medication - You have excessive bleeding - You experience continued vomiting/nausea - Your incision begins to separate - Your incision shows signs of infection such as increased redness, swelling, excessive pain, heat, or drainage (light blood or clear fluid is normal) 7. General instructions: No lifting greater than 5 lbs for the next 4 weeks. No driving within 24 hours of taking narcotic pain medications. If you do not move your bowels in the next 2 days, please take milk of magnesia over the counter. Please follow the post op diet and do not advance your diet until you are seen in the office in about 2 weeks. Please walk around your home every hour or two to prevent blood clots from forming in your legs. You do not need to wake from sleeping to walk. Please sleep in a bed or couch to prevent kinking at the hips and knees. Please take your incentive spirometer (your lung mascara molder) home with you and use it for the next few days to prevent pneumonias. You may shower, no hot tubs, baths or swimming pools. Please call the office with any questions or concerns such as increasing abdominal pain, fever, chills, shortness of breath, chest pain, leg pain or swelling, or redness or drainage from your incisions. Please stay on stage 3 diet which includes sugar free clear liquids such as ice pops and jello and broth and crystal light. Avoid all carbonation. Please drink 3 protein shakes with at least 25-30 grams of protein daily or 3 of the Celebrate 4:1 shakes which can be purchased in our office. The Celebrate shakes have all of the bariatric vitamins you need if you consume these shakes. If you are drinking other protein shakes, you will need to purchase the Celebrate multivitamins and calcium that we provide in the office (they will provide all the vitamins you need). Please make sure you are consuming at least 40-60 ounces of water in addition to your 3 protein shakes daily. Do not hesitate to contact the office with any questions at . The patient's medical history has been reviewed and they are considered low risk for post op DVT and therefore DVT prophylaxis is not considered necessary. Travel after surgery was reviewed. The patient has not disclosed any travel plans during the first 30 days after surgery and they have been advised that within the first 30 days after surgery any bus, plane, train or car travel over 2 hours in duration is contraindicated due to the possibility of developing blood clots from immobility. Any travel, needs to include periods of ambulation of 10 minutes in duration every 2 hours.? The patient was instructed to discuss any plans for travel during this period with their bariatric surgeon.
--- NOTE | 2021-12-04 16:04 | PM.PNGS ---
Subjective Subjective Date of Service: 12/05/21 Interval history: Patient has mild incisional pain, but was able to ambulate and use the incentive spirometer. She is tolerating phase 1 bariatric diet Physical Exam Vital Signs: Vital Signs: Last Vital Signs Temp 98.0 F 12/04/21 11:33 Pulse 70 12/04/21 11:33 Resp 16 12/04/21 11:33 BP 145/98 H 12/04/21 11:33 Pulse Ox 100 12/04/21 11:33 BMI result Body Mass Index 38.2 GI: Inspection: Yes normal to inspection, Yes incision (clean, dry and intact) and Yes obesity Extrem: Right lower extremity: normal to inspection (no calf tenderness) Left lower extremity: normal to inspection (no calf tenderness) Objective Data Active Medications Fentanyl (Fentanyl Citrate/Pf 100 Mcg/2 Ml Vial) 25 mcg IVPUSH Q5M PRN; Protocol PRN Reason: Pain, Moderate (Pain Scale 4-6 Hydromorphone HCl (Hydromorphone Hcl 0.5 Mg/0.5 Ml Syringe) 0.25 mg IVPUSH Q5M PRN; Protocol PRN Reason: Pain, Severe (Pain Scale 7-10) Lactated Ringer's (Lr) 1,000 mls @ 100 mls/hr IVCONT .Q10H SONNY Promethazine HCl 6.25 mg/ (Sodium Chloride) 50.25 mls @ 201 mls/hr IV ONCE PRN PRN Reason: Nausea and Vomiting Ondansetron HCl (Ondansetron Hcl 4 Mg/2 Ml Vial) 4 mg IVPUSH ONCE PRN PRN Reason: Nausea and Vomiting Labs CBC & Chem 7: 12/05/21 06:20 12/05/21 06:20 Labs: Laboratory Results - last 24 hr 12/04/21 11:11 Urine Test NEGATIVE Procedures Date of Service Date of Service: 12/05/21 Progress Note: A&P Assessment and plan (1) S/P laparoscopic sleeve gastrectomy: Status: Acute Assessment and Plan: s/p laparoscopic sleeve gastrectomy and gastropexy Doing well Check am labs. If OK, will discharge home? (2) Obesity: Status: Acute (3) BMI 37.0-37.9, adult: Status: Acute (4) GERD (gastroesophageal reflux disease): Status: Acute (5) Hypertension: Status: Acute (6) Back pain: Status: Acute (7) Leg pain: Status: Acute (8) Intra-abdominal adhesions: Status: Acute (9) Steatosis, liver: Status: Acute (10) Liver fibrosis: Status: Acute Fall Risk Details Current Medications: Current Medications Fentanyl (Fentanyl Citrate/Pf 100 Mcg/2 Ml Vial) 25 mcg IVPUSH Q5M PRN; Protocol PRN Reason: Pain, Moderate (Pain Scale 4-6 Hydromorphone HCl (Hydromorphone Hcl 0.5 Mg/0.5 Ml Syringe) 0.25 mg IVPUSH Q5M PRN; Protocol PRN Reason: Pain, Severe (Pain Scale 7-10) Lactated Ringer's (Lr) 1,000 mls @ 100 mls/hr IVCONT .Q10H SONNY Promethazine HCl 6.25 mg/ (Sodium Chloride) 50.25 mls @ 201 mls/hr IV ONCE PRN PRN Reason: Nausea and Vomiting Ondansetron HCl (Ondansetron Hcl 4 Mg/2 Ml Vial) 4 mg IVPUSH ONCE PRN PRN Reason: Nausea and Vomiting Time Spent With Patient Time: Total time spent is greater than 50% in coordination of care (as documented) at patient's floor/unit and/or counseling patient: Time with patient: less than 15 minutes Quality Stroke Does the patient have a stroke diagnosis?: No VTE Prior VTE?: No VTE Risk Level:: Surgical - moderate VTE Device Contraindication: Treatment Not Indicated VTE Drug Contraindication: N/A - Med Ordered
[2021-12-04] MEDS: Labetalol HCL 100 MG/20 ML VIAL 10 MG IVPUSH (16:26)
[2021-12-04] MEDS: Labetalol HCL 100 MG/20 ML VIAL IVPUSH ×2 (16:35→16:50)
[2021-12-04] MEDS: Metoclopramide HCl 10 MG/2 ML VIAL IVPUSH (17:13)
[2021-12-04 17:35] LABS: Hematocrit 42.5 % (37.0-47.0); Hemoglobin 13.7 g/dl (12.0-16.0)
[2021-12-04 17:48] LABS: Anion Gap 12 (12-20); Blood Urea Nitrogen 11 mg/dL (9-16); Calcium 8.7 mg/dL (8.4-10.2); Carbon Dioxide 26 mmol/L (22-29); Chloride 105 mmol/L (96-108); Creatinine Clr Calc Pharmacy 102.9; Estimated Glomerular Filt Rate > 60; Glucose Random 156 mg/dL (60-115); Potassium 3.2 mmol/L (3.3-5.1); Sodium 140 mmol/L (135-145)
[2021-12-04] MEDS: Lactated Ringers 1,000 ML 100 ML IVCONT (19:40)
[2021-12-04] MEDS: ondansetron HCL 4 MG/2 ML VIAL IVPUSH (19:43)
[2021-12-04] MEDS: Famotidine/PF 20 MG/2 ML VIAL IVPUSH (19:43)
[2021-12-04] MEDS: 0.9 % Sodium Chloride Flush 3 ML SYRINGE IVFLUSH ×2 (19:51→19:52)
[2021-12-04] MEDS: ceFAZolin Sodium/Dextrose,Iso 2 GM/50 ML PIGGYBACK IV (19:52)
[2021-12-05] MEDS: ondansetron HCL 4 MG/2 ML VIAL IVPUSH ×2 (02:46→09:34)
[2021-12-05] MEDS: HYDROmorphone HCl 0.5 MG/0.5 ML SYRINGE 0.25 MG IVPUSH (03:09)
[2021-12-05 03:11] VITALS: BP 156/88; PULSE 90; RESP 20; TEMP 36.7; O2SAT 95
[2021-12-05] MEDS: Lactated Ringers 1,000 ML 100 ML IVCONT (05:37)
[2021-12-05 06:27] LABS: MANUAL DIFF FLAG NO
[2021-12-05 06:32] LABS: Basophils Percent Auto 0.1 % (0-2); Hematocrit 39.4 % (37.0-47.0); Hemoglobin 12.9 g/dl (12.0-16.0); Imm Gran Abs Auto 0.04 X10*3/uL (0.00-0.03); Imm Gran Pct Auto 0.4 % (0.0-0.4); Lymphocytes Absolute Auto 0.9 X10*3/uL (1.2-4.9); Lymphocytes Percent Auto 9.9 % (20-40); Mean Corpuscular HGB Conc 32.7 g/dl (31.0-35.0); Mean Corpuscular Hemoglobin 27.2 pg (27.0-33.0); Mean Corpuscular Volume 82.9 fL (80.0-98.0); Mean Platelet Volume 10.2 fL (9.4-12.3); Monocytes Absolute Auto 0.2 X10*3/uL (0.1-1.2); Monocytes Percent Auto 2.3 % (2-11); Neutrophils Absolute Auto 7.8 x10*3/uL (2.0-8.3); Neutrophils Percent Auto 87.3 % (45-73); Platelet Count 266 X10*3/uL (160-400); Red Blood Count 4.75 X10*6/uL (4.20-5.50)
[2021-12-05 06:44] LABS: Anion Gap 13 (12-20); Blood Urea Nitrogen 11 mg/dL (9-16); Calcium 8.5 mg/dL (8.4-10.2); Carbon Dioxide 24 mmol/L (22-29); Chloride 104 mmol/L (96-108); Creatinine Clr Calc Pharmacy 113.1; Estimated Glomerular Filt Rate > 60; Glucose Random 131 mg/dL (60-115); Potassium 3.5 mmol/L (3.3-5.1); Sodium 137 mmol/L (135-145)
[2021-12-05 08:00] VITALS: BP 144/94; PULSE 87; RESP 18; TEMP 36.7; O2SAT 96
[2021-12-05] MEDS: Famotidine/PF 20 MG/2 ML VIAL IVPUSH (09:35)
[2021-12-05] MEDS: 0.9 % Sodium Chloride Flush 3 ML SYRINGE IVFLUSH (09:40)
--- NOTE | 2021-12-05 11:52 | MHC.CM.PN ---
PT LIVES WITH HER AND FOUR CHILDREN PT IS INDEPENDENT WITH ALL CARE AND HAS NO DME OR SERVICES PT WILL DC HOME TODAY WITH NO SERVICES FAMILY TO TRANSPORT
[2021-12-05 12:00] VITALS: BP 147/85; PULSE 75; RESP 18; TEMP 36.3; O2SAT 98
--- NOTE | 2021-12-05 13:34 | HO.POSTANES ---
Post Anesthesia Evaluation Post Anesthesia Evaluation Vital Signs: Vital Signs Temp Pulse Resp BP Pulse Ox 12/05/21 12:00 97.4 F 75 18 147/85 H 98 12/05/21 08:00 98.1 F 87 18 144/94 H 96 12/05/21 03:11 98.0 F 90 20 156/88 H 95 Anesthesia: General Endotracheal-GETA Mental Status: Awake Pain Control: Satisfactory Nausea/Vomiting: None Hydration: Adequate Anesthesia-Related Issues: No Anes. Related Issues
--- NOTE | 2021-12-05 14:28 | PC.NURSE ---
Dsg changed to abdomen per MS. DSD applied and tegaderm. All dressings now dry and intact.
== END 2021-12-05 14:29 | disposition home or self-care (01) ==
LOC: HO.SSS 16:04 → HO.S3 16:12
PROVIDERS: Nurse Practitioner; Physician Assistant Surgical; PCP Nurse Practitioner Family; Visit Provider Surgery
PROC: (CPT 43845; principal; 2021-12-04 13:00)
DX: E66.01 Morbid (severe) obesity due to excess calories (principal); Z68.37 Body mass index [BMI] 37.0-37.9, adult; I10 Essential (primary) hypertension; K66.0 Peritoneal adhesions (postprocedural) (postinfection); K21.9 Gastro-esophageal reflux disease without esophagitis; K76.0 Fatty (change of) liver, not elsewhere classified; M54.9 Dorsalgia, unspecified; M79.606 Pain in leg, unspecified; K74.00 Hepatic fibrosis, unspecified; Z90.49 Acquired absence of other specified parts of digestive tract; Z79.899 Other long term (current) drug therapy
CPT/HCPCS: 43775; 43659; 36415; 80048; 80053; 80061; 81025; 83036; 83525; 84443; 85014; 85018; 85025; 85610; 85730; 86140; 86850; 86900; 86901; 87635; 88307; 88342; 99024; A4649; J0131; J0690; J1100; J1170; J2250; J2405; J2550; J2765; J3010

== ENCOUNTER → 2021-12-09 14:25 | Outpatient (BNVA) | payer OTHER, SELFPAY | PROVIDERS: PCP Nurse Practitioner Family; Referring Provider Nurse Practitioner Family; Visit Provider Surgery | DX: E66.9 Obesity, unspecified (principal); Z98.84 Bariatric surgery status; Z68.36 Body mass index [BMI] 36.0-36.9, adult | CPT/HCPCS: 99212 ==

== ENCOUNTER → 2021-12-19 09:45 | Outpatient (BNVA) | payer OTHER, SELFPAY | PROVIDERS: PCP Nurse Practitioner Family; Referring Provider Nurse Practitioner Family; Visit Provider Physician Assistant Surgical ==

== ENCOUNTER → 2022-01-12 08:12 | Outpatient (BNVA) | payer OTHER, SELFPAY | PROVIDERS: PCP Nurse Practitioner Family; Visit Provider Surgery | DX: E66.9 Obesity, unspecified (principal); Z68.31 Body mass index [BMI] 31.0-31.9, adult | CPT/HCPCS: 99212 ==

== ENCOUNTER → 2022-02-09 08:06 | Outpatient (BNVA) | payer OTHER, SELFPAY | PROVIDERS: PCP Nurse Practitioner Family; Visit Provider Dietitian, Registered | DX: E66.9 Obesity, unspecified (principal); Z68.30 Body mass index [BMI] 30.0-30.9, adult; Z98.84 Bariatric surgery status; Z71.3 Dietary counseling and surveillance | CPT/HCPCS: 97803 ==

== ENCOUNTER → 2022-03-03 08:08 | Outpatient (BNVA) | payer OTHER, SELFPAY | PROVIDERS: PCP Nurse Practitioner Family; Referring Provider Surgery; Visit Provider Dietitian, Registered | DX: E66.9 Obesity, unspecified (principal); Z68.30 Body mass index [BMI] 30.0-30.9, adult | CPT/HCPCS: 97803 ==

== ENCOUNTER 2025-01-02 09:42 | Outpatient (REF) | payer MEDICAID, SELFPAY ==
[2025-01-02 11:26] LABS: MANUAL DIFF FLAG NO
[2025-01-02 11:54] LABS: Basophils Absolute Auto 0.1 X10*3/uL (0.0-0.2); Eosinophils Absolute Auto 0.3 X10*3/uL (0.0-0.4); Eosinophils Percent Auto 4.4 % (0-4); Hematocrit 38.9 % (37.0-47.0); Hemoglobin 12.7 g/dl (12.0-16.0); Imm Gran Abs Auto 0.04 X10*3/uL (0.00-0.03); Imm Gran Pct Auto 0.7 % (0.0-0.4); Lymphocytes Percent Auto 32.6 % (20-40); Mean Corpuscular HGB Conc 32.6 g/dl (31.0-35.0); Mean Corpuscular Hemoglobin 27.1 pg (27.0-33.0); Mean Corpuscular Volume 83.1 fL (80.0-98.0); Mean Platelet Volume 9.7 fL (9.4-12.3); Monocytes Absolute Auto 0.3 X10*3/uL (0.1-1.2); Monocytes Percent Auto 5.2 % (2-11); Neutrophils Absolute Auto 3.4 x10*3/uL (2.0-8.3); Neutrophils Percent Auto 56.1 % (45-73); Platelet Count 227 X10*3/uL (160-400); Red Blood Count 4.68 X10*6/uL (4.20-5.50); Red Cell Distribution Width 13.8 % (11.0-16.0); White Blood Count 6.1 X10*3/uL (4.8-10.8)
[2025-01-02 12:00] LABS: Estimated Average Glucose 108 mg/dL; Hemoglobin A1c % 5.4 % (<6.0); Total Hemoglobin (HGBA1C) 3409.9788 umol/L
[2025-01-02 12:56] LABS: Alanine Aminotransferase 25 U/L (0-31); Albumin Level 4.2 g/dL (3.5-5.0); Alkaline Phosphatase 39 U/L (39-117); Anion Gap 11 (12-20); Aspartate Amino Transferase 15 U/L (5-31); Bilirubin Total 0.4 mg/dL (0.0-1.0); Blood Urea Nitrogen 15 mg/dL (9-16); C Reactive Protein < 0.10 mg/dL (< or = 0.50); Calcium 8.9 mg/dL (8.4-10.2); Carbon Dioxide 26 mmol/L (22-29); Chloride 108 mmol/L (96-108); Cholesterol 201 mg/dL (<200); Estimated Glomerular Filt Rate > 60; Glucose Random 83 mg/dL (60-115); HDL Cholesterol 48 mg/dL (>40); Iron 102 mcg/dL (30-160); LDL Cholesterol Calculated 137 mg/dL (<100); Percent Iron Saturation 33 % (15-50); Potassium 4.2 mmol/L (3.3-5.1); Sodium 141 mmol/L (135-145); Total Iron Binding Capacity 306 mcg/dL (228-428); Total Protein 7.2 g/dL (6.5-8.0); Triglycerides 84 mg/dL (<150); Unsaturated Iron Binding 204 ug/dL
[2025-01-02 13:11] LABS: Ferritin 65 ng/mL (10-250); TSH reflex Free T4 1.13 uIU/mL (0.32-4.0)
[2025-01-02 13:13] LABS: Folate 9.4 ng/mL (> or = 4.0); Vitamin B12 242 pg/mL (200-900)
[2025-01-02 13:17] LABS: Insulin 6 uU/mL (2-29)
[2025-01-04 23:28] LABS: Zinc 58 mcg/dL (60-130)
[2025-01-05 11:53] LABS: Vitamin A 56 mcg/dL (38-98)
[2025-01-07 11:48] LABS: Vitamin B1 14 nmol/L (8-30)
== END 2025-01-02 09:43 | disposition home or self-care (01) ==
LOC: HO.LAB 09:42
PROVIDERS: PCP Nurse Practitioner Family; Visit Provider Physician Assistant Surgical
DX: Z98.84 Bariatric surgery status (principal); K76.0 Fatty (change of) liver, not elsewhere classified; E51.9 Thiamine deficiency, unspecified; E55.9 Vitamin D deficiency, unspecified; E53.8 Deficiency of other specified B group vitamins; I10 Essential (primary) hypertension
CPT/HCPCS: 36415; 80053; 80061; 82306; 82607; 82728; 82746; 83036; 83525; 83540; 84425; 84443; 84590; 84630; 85025; 86140; 99212

== ENCOUNTER 2025-01-02 09:42 | Outpatient (AMB) | payer MEDICAID, SELFPAY ==
--- NOTE | 2025-01-02 10:01 | A.OFFVIS_ITS ---
VS Expanded 01/02/25 10:04 BP 145/89 H Blood Pressure Location Rt brachial Blood Pressure Position Sitting Pulse 71 Pulse Source Pulse Oximeter Temp 96.8 F Temperature Source Temporal Artery Scan Pulse Oximetry 100 Oxygen Delivery Method Room Air Height 5 ft 3 in Weight 191 lb 9.6 oz BMI 33.9 Body Fat % 33.6 Body Fat Mass 64.4 Fat Free Mass 127.2 Visceral Fat Rating 8.0 Body Water % 47.3 Body Water Mass 90.6 Muscle Mass/Score 120.8 Basal Metabolic Rate/Score 1,717 Intake Visit Reasons: (OV) PO LSG 12/04/2021 *GLP-1* Senior Treasury Consultant Required: Yes Senior Treasury Consultant Services: Senior Treasury Consultant Present Senior Treasury Consultant Name: April flupetra - meir Allergies No Known Allergies Allergy (Verified 01/02/25 10:06) HPI Comments Details: Patient is a 49-year-old female who returns to the office today in follow-up. She is 3 years 1 month post sleeve gastrectomy performed on 12/04/2021. She was last seen in the office in 03/06/2022 with a weight of 171 lb and a BMI of 30.2. Weight today is 191.6 lb with a BMI of 33.9. She states that she has not been seen in several years as she had been doing well. She has been traveling back and forth to her home country of [facility]. She states that over the last 2 months she has noticed epigastric discomfort and reflux. SHe states that nothing has changed in her meal plan or types of food. She recently started a migraine medication and BP medication but does not know the names. She has also had increase in stress over the last 2 months. She has an appointment for the first time with on 01/11/25. She states that if she eats too much she has the pain. States she does not eat too quickly. Meal plan: (sometimes following) iced coffee 1 egg, tomato and cheese potato or rice sometimes w chicken chocolate, chips banana or grapes when not following the plan: tomato, bread, tea, rice, soup lots of snacks. exercise plan: sometimes walks outside, 3-4 days per week, 2 hours no gym due to taoist culture [facility] Medical History Liver fibrosis Steatosis, liver COVID-19 vaccine series completed Leg pain Back pain Hypertension GERD (gastroesophageal reflux disease) Morbid obesity Surgical History S/P laparoscopic sleeve gastrectomy History of H/O umbilical hernia repair Hx laparoscopic cholecystectomy Social History Are you a primary vp care management to a significant other at home: No Do you presently have visiting nurse or other home services: No Alcohol intake: never Patient Tobacco Use Status: Never used Tobacco service: No Current occupational status: unemployed Physical Exam Vital Signs: Last Vital Signs Temp 96.8 F 01/02/25 10:04 Pulse 71 01/02/25 10:04 BP 145/89 H 01/02/25 10:04 Pulse Ox 100 01/02/25 10:04 Oxygen Delivery Method Room Air 01/02/25 10:04 BMI result Body Mass Index 33.9 Const General: healthy appearing and no acute distress Resp Effort & Inspection: normal respiratory effort Auscultation: clear to auscultation bilaterally Cardio Rate: regular rate Rhythm: regular rhythm GI Auscultation: normal bowel sounds Extrem General: Yes normal to inspection Assessment & Plan Assessment & Plan (1) S/P laparoscopic sleeve gastrectomy: Code(s): Z98.84 - Bariatric surgery status Category: Surgical Plan: Patient wakes at 04:30. Recommend bedtime at 21:30. Using premier protein ready to drink shake per her request 6 oz of Premier protein shake mixed with 4 oz of unsweetened almond milk at 5-7 Repeat shake at 9-11 Atkins bar at 12-2 Meal at 3 pm with 6 forks of protein and 6 forks of vegetables. She states that she does not wish to eat after her meal at 15:00. She was additionally instructed to get a bariatric multivitamin and continue with the vitamin-D that she is taking at home. We will obtain postop labs. As far as exercise is concerned, she states that she is planning on buying a treadmill for home. She may continue to walk daily. We will have her return to the office in approximately 6 weeks. Orders: Orders Insulin Today E51.9 - Thiamine deficiency, unspecified, E53.8 - Deficiency of other specified B group vitamins, E55.9 - Vitamin D deficiency, unspecified, I10 - Essential (primary) hypertension, K76.0 - Fatty (change of) liver, not elsewhere classified, Z98.84 - Bariatric surgery status IRON PROFILE Today E51.9 - Thiamine deficiency, unspecified, E53.8 - Deficiency of other specified B group vitamins, E55.9 - Vitamin D deficiency, unspecified, I10 - Essential (primary) hypertension, K76.0 - Fatty (change of) liver, not elsewhere classified, Z98.84 - Bariatric surgery status Zinc Today E51.9 - Thiamine deficiency, unspecified, E53.8 - Deficiency of other specified B group vitamins, E55.9 - Vitamin D deficiency, unspecified, I10 - Essential (primary) hypertension, K76.0 - Fatty (change of) liver, not elsewhere classified, Z98.84 - Bariatric surgery status TSH reflex Free T4 Today E51.9 - Thiamine deficiency, unspecified, E53.8 - Deficiency of other specified B group vitamins, E55.9 - Vitamin D deficiency, unspecified, I10 - Essential (primary) hypertension, K76.0 - Fatty (change of) liver, not elsewhere classified, Z98.84 - Bariatric surgery status Hemoglobin A1c Today E51.9 - Thiamine deficiency, unspecified, E53.8 - Deficiency of other specified B group vitamins, E55.9 - Vitamin D deficiency, unspecified, I10 - Essential (primary) hypertension, K76.0 - Fatty (change of) liver, not elsewhere classified, Z98.84 - Bariatric surgery status Complete Blood Count Auto Diff Today E51.9 - Thiamine deficiency, unspecified, E53.8 - Deficiency of other specified B group vitamins, E55.9 - Vitamin D deficiency, unspecified, I10 - Essential (primary) hypertension, K76.0 - Fatty (change of) liver, not elsewhere classified, Z98.84 - Bariatric surgery status Lipid Panel Today E51.9 - Thiamine deficiency, unspecified, E53.8 - Deficiency of other specified B group vitamins, E55.9 - Vitamin D deficiency, unspecified, I10 - Essential (primary) hypertension, K76.0 - Fatty (change of) liver, not elsewhere classified, Z98.84 - Bariatric surgery status Comprehensive Met. Panel Today E51.9 - Thiamine deficiency, unspecified, E53.8 - Deficiency of other specified B group vitamins, E55.9 - Vitamin D deficiency, unspecified, I10 - Essential (primary) hypertension, K76.0 - Fatty (change of) liver, not elsewhere classified, Z98.84 - Bariatric surgery status Vitamin B12 and Folate Today E51.9 - Thiamine deficiency, unspecified, E53.8 - Deficiency of other specified B group vitamins, E55.9 - Vitamin D deficiency, unspecified, I10 - Essential (primary) hypertension, K76.0 - Fatty (change of) liver, not elsewhere classified, Z98.84 - Bariatric surgery status C Reactive Protein Today E51.9 - Thiamine deficiency, unspecified, E53.8 - Deficiency of other specified B group vitamins, E55.9 - Vitamin D deficiency, unspecified, I10 - Essential (primary) hypertension, K76.0 - Fatty (change of) liver, not elsewhere classified, Z98.84 - Bariatric surgery status Vitamin B1 Today E51.9 - Thiamine deficiency, unspecified, E53.8 - Deficiency of other specified B group vitamins, E55.9 - Vitamin D deficiency, unspecified, I10 - Essential (primary) hypertension, K76.0 - Fatty (change of) liver, not elsewhere classified, Z98.84 - Bariatric surgery status Vitamin A Today E51.9 - Thiamine deficiency, unspecified, E53.8 - Deficiency of other specified B group vitamins, E55.9 - Vitamin D deficiency, unspecified, I10 - Essential (primary) hypertension, K76.0 - Fatty (change of) liver, not elsewhere classified, Z98.84 - Bariatric surgery status Ferritin Today E51.9 - Thiamine deficiency, unspecified, E53.8 - Deficiency of other specified B group vitamins, E55.9 - Vitamin D deficiency, unspecified, I10 - Essential (primary) hypertension, K76.0 - Fatty (change of) liver, not elsewhere classified, Z98.84 - Bariatric surgery status Vitamin D 25-OH Total Today E51.9 - Thiamine deficiency, unspecified, E53.8 - Deficiency of other specified B group vitamins, E55.9 - Vitamin D deficiency, unspecified, I10 - Essential (primary) hypertension, K76.0 - Fatty (change of) liver, not elsewhere classified, Z98.84 - Bariatric surgery status
[2025-01-02 10:04] VITALS: BP 145/89; PULSE 71; TEMP 36; O2SAT 100; BMI 33.9
--- OUTSIDE RECORDS SUMMARY | 2025-01-02 10:40 | XMS_ITS | Encounter Summary ---
Author Organization [facility] Address [address] [place] [address] Care Team Providers Care Geospatial Specialist Name Role Phone Laureen Hicks JULIETH Primary Care Provider [phone] Reason for Visit * Reason Comments Behavioral Health Assessment Depression Encounter Details Date Type Department Care Team ([facility] Contact Info) Description 01/01/2016 / Visits [address] [phone] Rajni Nazario, COUNSELOR [address] [place] [id number] Social History Tobacco Use Types Packs/Day Years Used Date Smoking Tobacco: Never Smokeless Tobacco: Never Alcohol Use Standard Drinks/Week Comments No 0 (1 standard drink = 0.6 oz pur e alcohol) Comments No Sex and Gender Information Value Date Recorded Sex Assigned at Female 02/03/2018 10:06 AM PDT Legal Sex Female 4:16 PM PDT Gender Identity Female 02/03/2018 10:06 AM PDT Sexual Orientation Straight 02/03/2018 10 :06 AM PDT documented as of this encounter Plan of Treatment Upcoming Encounters Date Type Department Care Team (Late Contact Info) Description 01/09/2025 11:20 AM EDT Office Visit [facility] [address] [place] [phone] [place] [address] [place] [id number] Vincent Boykin [address] [place] [address] 01/11/2025 1:20 PM EDT Office Visit [facility] [address] [place] [phone] Taqueria Saunders PharmD [address] [place] [address] Vincent Boykin [address] [place] [address] documented as of this encounter Goals Goal Patient Goal Type Associated Problems Recent Progress Patient-Stated? Author Decrease soda or juice intake Diet No Lori Hillman RD Have 3 meals a day Diet No Lori Hillman RD Reduce portion size Diet No Lori Hillman RD Reduce sugar intake Diet No Lori Hillman RD documented as of this encounter Visit Diagnoses Not on filedocumented in this encounter Care Teams Geospatial Specialist Relationship Specialty Start Date End Date Laureen Hicks FNP [address] [place] [id number] PCP - General Internal Medicine 08/23/19 documented as of this encounter
--- OUTSIDE RECORDS SUMMARY | 2025-01-02 10:40 | XMS_ITS | Clinical Summary ---
Author Organization [facility] Address [address] [place] [address] Care Team Providers Care Nurse Ortho Name Role Phone Laureen Hicks JULIETH Primary Care Provider [phone] Source Comments PLEASE NOTE, if this patient is a minor, it may be UNLAWFUL to discuss sensitive information that is contained in these records (such as FAMILY PLANNING, MENTAL HEALTH or SUBSTANCE ABUSE) with the minor patient's parent or other person without the patient's specific authorization.[facility] Allergies No known active allergies Medications nystatin (MYCOSTATIN) 100,000 unit/gram powderIndication s:Candidiasis, intertrigo Apply topically 4 (four) times daily 15 g 1 9 Active scopolamine base (TRANSDERM-SCOP) 1 mg over 3 days patchIndications :Vertigo Place 1 Patch onto the skin every third day (every 72 hours) 10 Patch 1 0 Active biotin 5 mg tabIndications:F emale pattern hair loss Take 1 Tab by mouth once daily 90 Tab 2 0 Active minoxidiL (ROGAINE) 2 % external solutionIndicati ons:Female pattern hair loss Apply topically 2 (two) times daily For hair/scalp 60 mL 2 0 Active propranoloL (INDERAL) 10 mg tabletIndication s:Hypertension, unspecified type Take 1 Tablet by mouth 2 (two) times daily as needed for other reason (if BP >160/100) 30 Tablet 3 Active telmisartan (MICARDIS) 80 mg tabletIndication s:Hypertension, benign Take 1 Tablet by mouth once daily For BP ( increase in dose) 90 Tablet 1 4 Active SUMAtriptan succinate (IMITREX) 100 mg tabletIndication s:Frontal headache Take 1 Tablet by mouth once daily as needed for other reason (headache) If not better in 2 hour, then take 1 more tab. Max 2 tabs per day. 20 Tablet 2 4 Active cholecalciferol, vitamin D3, (VITAMIN D3) 1,250 mcg (50,000 unit) capsule TAKE 1 CAPSULE BY MOUTH ONE TIME PER WEEK 12 Capsule 3 4 Active fluticasone (FLONASE) 50 mcg/actuation nasal sprayIndications :Nasal congestion PLACE 1 SPRAY IN BOTH NOSTRILS ONCE DAILY FOR 14 DAYS 32 mL 1 4 Active amLODIPine (NORVASC) 2.5 mg tablet Take 2.5 mg by mouth once daily For BP 5 Active Active Problems Problem Noted Date Diagnosed Date Lipoma of liver 09/16/2024 Overview (09/16/2024): 08/30/[facility]: [facility]: CT of angiogram of abdomen: ANGIOGRAPHIC FINDINGS: No aortic dissection or aneurysm. Four vessel arch with independent takeoff of the left vertebral artery. No significant branch vessel stenosis. Pulmonary arteries are normal in caliber. No evidence of central pulmonary embolism on this study performed without dedicated technique. Abdominal aorta: No aortic aneurysm or dissection. Celiac axis: Patent. Superior mesenteric artery: Patent. Right renal artery: Patent. Left renal artery: Patent. Inferior mesenteric artery: Patent. Visualized iliac arteries: Patent. NON-ANGIOGRAPHIC FINDINGS Pipe Liner View Findings, Lines and Tubes: None. Trachea and Airways: Patent without evidence of tracheal or endobronchial lesion. Lungs and Pleura: Clear lungs. No effusion or pneumothorax. Mediastinum and juan: No mass or hematoma. No mediastinal or hilar lymphadenopathy. Small type I hiatal hernia. Heterogeneous appearance of the thyroid gland. Heart: Heart is normal in size. No pericardial effusion. No coronary arterial calcifications. Chest Wall Soft Tissues: Normal. Diaphragm: No significant abnormality. Liver: 2.0 x 3.3 cm fat density lesion in the right hepatic lobe, new from prior. Previously seen peripherally enhancing lesion is not well-visualized on today's study. Gallbladder: Absent consistent with prior cholecystectomy. Bile ducts: No biliary ductal dilation. Spleen: Normal. Accessory splenic tissue is incidentally noted. Pancreas: Mildly atrophic parenchyma. No ductal dilation or suspicious lesion. Adrenal glands: Normal. Kidneys and ureters: Punctate stone in left kidney upper pole. No right nephrolithiasis. No hydronephrosis or suspicious masses. Stomach, small bowel, and large bowel: Post surgical changes of the stomach. No evidence of obstruction or focal inflammation. Peritoneum and retroperitoneum: No ascites or pneumoperitoneum. No omental or mesenteric lesions. Lymph nodes: No enlarged lymph nodes. Abdominal wall: Unremarkable. Bones: No acute abnormality. Mild degenerative disc disease, more prominent in the lumbar spine. IMPRESSION: No acute nonemergent abnormality. 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 Financial difficulties 08/08/2024 S/P gastric sleeve procedure 11/18/2021 History of carpal tunnel surgery, bilateral 06/18 Shoulder tendinitis, right 12/22/2020 Chronic pain of both ankles 12/22/2020 Vertigo 11/23/2019 Multiple thyroid nodules 06/25/2019 Overview (08/23/2019): 05/10/19 - Thyroid U/S: LEFT thyroid midpole 3.1 x 1.9 x 2 cm largely solid nodule. TR 4 and would recommend biopsy. Abutting the above nodule in the LEFT thyroid lower pole there is a 1.1 x 0.7 x 0.7 cm hyperechoic solid nodule. It is also TR 4. Due to its small size, may consider f/u imaging to confirm stability. 07/20/19 - Seen by [facility]: Pt with 3 cm midpole nodule. Labs not available , will check thyroid labs, F/U 4 mos. Psychophysiological insomnia 02/22/2019 PTSD (post-traumatic stress disorder) 02/13/2019 Hepatic lesion 05/04/2017 Overview (05/04/2017): CT abd/pelvis 04/25/17 at [facility] = 16 mm liver lesion indeterminate Chronic left-sided low back pain with left-sided sciatica 01/25/2017 Overview (11/14/2020): SEES Dr Skinner. Rheum f/u Dr. Saavedra in [place] GERD (gastroesophageal reflux disease) 7 Sacralization of lumbar vertebra 07/07/2016 Overview (07/07/2016): Of L5 vertabra. F/u Rheum Dr. Luna in [place]. Chronic pain of both knees 11/19/2015 Overview (01/25/2017): [place] [facility] [place]dominal wall hernia, supra -umbilical s/p laproscopic repair 06/201512/10/2014 Vitamin D deficiency 11/12/2013 Overview (11/12/2013): =14. Bilateral carpal tunnel syndrome 11/10/2013 Overview (06/21/2015): F/U [facility] & seen by Neuro Dr. Moran. S/p left carpal tunnel release 12/30/14. Morbid obesity ([facility]) 09/28/2013 Resolved Problems Problem Noted Date Diagnosed Date Resolved Date Vagina itching 03/13/2015 11/19/2015 Overview (03/13/2015): Tx with terazol # cream Encounters Date Type Department Care Team Description 11/21/2024 10:00 AM EST Telemedicine Visit [address] [phone] Laureen Hicks FNP [place], [place] Syncope, unspecified syncope type (Primary Dx); Hypertension, benign; Psychogenic nonepileptic seizure; Atypical migraine; Thyroid nodule; Tachycardia 10/10/2024 8:40 AM EST Telemedicine Visit [address] [phone] Laureen Hicks FNP Hypertension, benign (Primary Dx); Generalized abdominal pain; Chronic bilateral low back pain without sciatica; Chronic pain of both knees; Pap smear for cervical cancer screening; Encounter for screening mammogram for malignant neoplasm of breast 10/10/2024 Travel from Last 3 Months Immunizations Name Administration Dates Next Due Flu, Preservative Free 11/14/2021 Hep B, Adult/Adol (ENERGIX/RECOMBIVAX) 4,12/11/2013,11/10/2013 History Of Varicella 09/28/2013 INFLUENZA, SEASONAL, INJECTA BLE, PRESERVATIVE FREE 07/10/2013 MMR (MMR II/Priorix) 11/10/2013 MMRV, Live (Proquad) 09/28/2013 PFIZER COVID VACCINE, PURPLE CAP, 12+ 11/14/2021 ,03/27/2021,03/06/2021 Pfizer-BioNTech COVID-19 Vac cine Bivalent, (DURBIN PFIZER-BIONTECH COVID-19 VACCINE BIVALENT, (DURBIN CAP 11/20/2022 TDAP 01/18/2024,09/28/2013 Td (adult), 5 Lf tetanus tox oid, preservative free 12/11/2013 Family History Medical History Relation Name Comments Hypertension Father Diabetes Mother Hypertension Mother Relation Name Status Comments Father Mother Social History Tobacco Use Types Packs/Day Years Used Date Smoking Tobacco: Never Smokeless Tobacco: Never Tobacco Cessation:Counseling Given: Not Answered Alcohol Use Standard Drinks/Week Comments No 0 (1 standard drink = 0.6 oz pur e alcohol) Social Connections Answer Date Recorded Connectedness 1 08/08/2024 Financial Resource Strain Answer Date R ecorded Financial Resource Strain 2 2023 Stress Answer Date Recorded Stress 1 08/08/2024 Physical Activity Answer Date Recorded Physical Activity 0 08/21/2020 Food Insecurity Answer Date Recorded Food 1 08/08/2024 Transportation Needs Answer Date Record ed Transportation 1 08/08/2024 Housing Stability Answer Date Recorded Housing 1 08/08/2024 Safety and Environment Answer Date Rashid rded Safety 1 08/08/2024 Utilities Answer Date Recorded Utilities 1 08/08/2024 Employment Answer Date Recorded Stress 1 08/08/2024 Comments No Sex and Gender Information Value Date Recorded Sex Assigned at Female 02/03/2018 10:06 AM PDT Legal Sex Female 4:16 PM PDT Gender Identity Female 02/03/2018 10:06 AM PDT Sexual Orientation Straight 02/03/2018 10 :06 AM PDT Last Filed Vital Signs Vital Sign Reading Time Taken Comments Blood Pressure 148/90 09/12/2024 4:49 PM EST Pulse 67 09/12/2024 4:49 PM EST Temperature 36.7 ??C (98.1 ??F) 09/12/2024 4:49 PM ES T Respiratory Rate 16 09/12/2024 4:49 PM EST Oxygen Saturation 98% 09/12/2024 4:49 PM EST Inhaled Oxygen Concentration - - Weight 86.2 kg (190 lb) 09/12/2024 4:49 PM EST Height 160 cm (5' 3 ) 09/12/2024 4:49 PM EST Body Mass Index 33.66 09/12/2024 4:49 PM EST Plan of Treatment Upcoming Encounters Date Type Department Care Team (Late st Contact Info) Description 01/09/2025 11:20 AM EDT Office Visit [address] [phone] Vivien Guallpa MD [address] [place] [id number] Vincent Boykin [address] [place] [id number] 01/11/2025 1:20 PM EDT Office Visit [address] [phone] Taqueria Saunders, PharmD [address] [place] [address] Vincent Boykin [address] [place] [phone] Health Maintenance Due Date Last Done Comments CT Colonography 2021 Colonoscopy 2021 Colorectal Cancer Screening 2021 FIT/gFOBT 2021 Fecal DNA 2021 Flexible Sigmoidoscopy 2021 Cervical Cancer Screening 07/26/2023 HPV Screening 07/26/2023 07/26/2018 Pap + HPV 07/26/2023 07/26/2018 Pap Smear 07/26/2023 07/26/2018, 02/13/2013 [id number] ( season) 2024 11/20/2022, 11/14/2021, 03/27/2021, Additional history exists Breast Cancer Screening (Mammogram) 07/21/2024 07/21/2023, 05/29/2021, 05/29/2021, Additional history exists Annual Preventive Care Visit 09/21/202402/2023, 08/07/2021, 08/02/2020, Additional history exists Alcohol and Drug Screen 10/18/2024 01/18/20, 11/20/2022, 11/14/2021, Additional history exists Depression Annual Screen 10/18/2024 01/18/2024, 01/16 Relationship Safety Screening/Counseling 08/08/2025 08/08/2024, 01/18/2024, 11/20/2022, Additional history exists Diabetes Screening 09/12/2025 09/12/2024, 0 07/06/2024, 01/18/2024, Additional history exists Tobacco Screening 11/21/2025 11/21/2024, 09/21/2023 Lipid Screening 01/17/2027 01/18/2024, 12/2022, 03/05/2021, Additional history exists Imm-DTaP/Tdap/Td (4 - Td or Tdap) 01/17/2034 01/18/2024, 12/11/2013, 09/28/2013 Imm-Hepatitis B Completed 04/06/2014, 11/19, 11/10/2013 HIV Screening Completed 06/21/2018, 01/2018 (Managed by Outside Provider) Hepatitis C Screening Completed 05/31/2020 Imm-Influenza Discontinued 11/14/2021, 07/10/2013 Cervical Ablation/Cold-Knife Conization Discontinued Cervical Cryotherapy Discontinued Colposcopy Discontinued Endometrial Biopsy Discontinued Excision/Leep Discontinued HPV Genotyping Discontinued Vaginal Pap Discontinued Vulvoscopy Discontinued Goals Goal Patient Goal Type Associated Problems Recent Progress Patient-Stated? Author Decrease soda or juice intake Diet No Lori Hillman RD Have 3 meals a day Diet No Lori Hillman RD Reduce portion size Diet No Lori Hillman RD Reduce sugar intake Diet No Hillman, Lori, RD Procedures Procedure Name Priority Date/Time Associated Diagnosis Comments IMAGING SCANNED DOCUMENT 12/21/2024 3:00 AM EST US THYROID Routine 12/19/2024 3:00 AM EST Thyroid nodule REFERRAL TO CARDIOLOGY Urgent 3:00 AM EST Syncope, unspecified syncope type Abnormal ECG REFERRAL FOR EEG Routine 11/02/2024 3:00 AM EST Syncope, unspecified syncope type COMPREHENSIVE METABOLIC PANEL Routine 09/12/2024 5:28 PM EST Hypokalemia LIPID PANEL Routine 01/18/2024 4:19 PM EDT Need for vaccination Colon cancer screening History of gastric surgery Encounter for laboratory examination HISTORIC MAMMOGRAM 07/21/2023 3: 00 AM EDT HEPATITIS C ANTIBODY Routine 05/31/2020 8:43 AM EDT Prediabetes PAP SMEAR W/HPV, ABSTRACTED Routine 07/26/2018 4:03 PM EDT HIV Routine 06/21/2018 4:29 PM EDT from Last 3 Months or Most Recently Relevant to Health Maintenance Results * IMAGING SCANNED DOCUMENT (12/21/2024 3:00 AM EST) 12/21/2024 3:00 AM EST us Laureen PINTOP SCAN IMAGING Final Result * US THYROID (12/19/2024 3:00 AM EST) 12/19/2024 3:00 AM EST us Laureen Hicks FINANCIAL ASSISTANT IMG ULTRASOUND Final Result [facility] Corporate Office [address], [address] [place] [address], [place] [phone] * REFERRAL TO CARDIOLOGY (12/13/2024 3:00 AM EST) 12/13/2024 3:00 AM EST Result [facility] REFERRAL Edited Result - Final * REFERRAL FOR EEG (11/02/2024 3:00 AM EST) 11/02/2024 3:00 AM EST [facility] REFERRAL Final Result * COMPREHENSIVE METABOLIC PANEL (09/12/2024 5:28 PM EST) GLUCOSE 95 65 - 99 mg/dL [facility] Comment: ?Fasting reference interval UREA NITROGEN (BUN) 13 7 - 25 mg/dL [facility] CREATININE (blood) 0.96 0.50 - 0.99 mg/dL [facility] EGFR 73 > OR = 60 mL/min/1. 73m2 [facility] BUN/CREATININE RATIO SEE NOTE: [facility] Comment: ?? Not Reported: BUN and Creatinine are within ?? reference range. ? SODIUM 138 135 - 146 mmol/L [facility] POTASSIUM 3.7 3.5 - 5.3 mmol/L [facility] CHLORIDE 103 98 - 110 mmol/L [facility] CARBON DIOXIDE 29 20 - 32 mmol/L [facility] CALCIUM 9.2 8.6 - 10.2 mg/dL [facility] PROTEIN, TOTAL 6.8 6.1 - 8.1 g/dL [facility] ALBUMIN 4.7 3.6 - 5.1 g/dL [facility] GLOBULIN 2.1 1.9 - 3.7 g/dL (calc) [facility] ALBUMIN/GLOBULI N RATIO 2.2 1.0 - 2.5 (calc) [facility] BILIRUBIN, TOTAL 0.3 0.2 - 1.2 mg/dL [facility] ALKALINE PHOSPHATASE 33 31 - 125 U/L [facility] AST 11 10 - 35 U/L [facility] ALT 12 6 - 29 U/L [facility] Blood Blood / Unknown 09/12/2024 5 :28 PM EST 09/12/2024 5:29 PM EST Laureen Hicks [facility] - BLOOD DRAW Final Result Performing Organization Address City/[facility]/ZIP Co de Phone Number [facility] [address] [address], [facility] [address] [address] * (ABNORMAL) LIPID PANEL (01/18/2024 4:19 PM EDT) [facility] CHOLESTEROL, TOTAL 205(H) <200 mg/dL [facility] HDL CHOLESTEROL 48(L) > OR = 50 mg/dL [facility] TRIGLYCERIDES 61 <150 mg/dL [facility] LDL-CHOLESTEROL 142(H) 99 mg/dL (calc) [facility] Comment: Reference range: <100 Desirable range <100 mg/dL for primary prevention; ?? <70 mg/dL for patients with CHD or diabetic patients with > or = 2 CHD risk factors. LDL-C is now calculated using the Cat calculation, which is a validated novel method providing better accuracy than the Friedewald equation in the estimation of LDL-C. Hugo SS et al. FABIANA. 2013;310(19): 6178-6919 (http://education.[employer]/faq/TOQ895) CHOL/HDLC RATIO 4.3 <5.0 (calc) [facility] NON-HDL CHOLESTEROL 157(H) <130 mg/dL (calc) [facility] Comment: For patients with diabetes plus 1 major ASCVD risk factor, treating to a non-HDL-C goal of <100 mg/dL (LDL-C of <70 mg/dL) is considered a therapeutic option. Blood Blood / Unknown 01/18/2024 4 :19 PM EDT 01/18/2024 4:19 PM EDT Narrative [facility] - 01/19/2024 4:49 AM EDT FASTING:YES Laureen Velazconoe [facility] - BLOOD DRAW Final Result Performing Organization Address City/[facility]/ZIP Co de Phone Number [facility] [address] [address], [place] [facility] [address] [place] [address] * HISTORIC MAMMOGRAM (07/21/2023 3:00 AM EDT) 07/21/2023 3:00 AM EDT Laureen PINTOP IMG MAMMO Edited Result - Final * HEPATITIS C ANTIBODY (05/31/2020 8:43 AM EDT) HEPATITIS C VIRUS SCREEN NEGATIVE NEGATIVE [facility] Blood specimen (specimen) Blood / Unknown 05/31/2020 8:43 AM EDT 05/31/2020 8:50 AM EDT Narrative [facility] - 05/31/2020 1:48 PM EDT [employer], [place] [address] Senior Net C Developer - Catalina Peña [place] [id number] ORD# [id number] Laureen [facility] - BLOOD DRAW Final Result Performing Organization Address City/[facility]/ZIP Co de Phone Number [facility] [address], * PAP SMEAR W/HPV, ABSTRACTED (07/26/2018 4:03 PM EDT) PAP SMEAR INTERPRETATION NORMAL NORMAL [facility] HPV (HUMAN PAPILLOMA) NEGATIVE NEGATIVE [facility] HPV TYPE 16 NEGATIVE NEGATIVE [facility] HPV TYPE 18 NEGATIVE NEGATIVE [facility] Specimen from uterine cervix (specimen) Impressions [facility] - 07/26/2018 4:03 PM EDT ThinPrep Pap Negative for squamous intraepithelial lesion and malignancy HPV Negative Provider [facility] - NO BLOOD DRAW Final Result [facility] [address] [place] [id number], * HIV, ABSTRACTED (06/21/2018 4:29 PM EDT) Blood specimen (specimen) Blood / Unknown 06/21/2018 4:29 PM EDT us Provider [facility] - BLOOD DRAW Final Result [facility] [address] [facility] [place] [address], from Last 3 Months or Most Recently Relevant to Health Maintenance Insurance HEALTH SAFETY NET DENTAL [id number] [place] [address] [facility] [address] [employer] Care Teams Nurse Ortho Relationship Specialty Start Date End Date Laureen Hicks FNP [address] [place] [address] PCP - General Internal Medicine 08/23/19
== END 2025-01-02 11:07 | disposition home or self-care (01) ==
LOC: HO.HBS 09:42
PROVIDERS: PCP Nurse Practitioner Family; Visit Provider Physician Assistant Surgical
DX: E66.811 Obesity, class 1 (principal); Z68.34 Body mass index [BMI] 34.0-34.9, adult; Z90.3 Acquired absence of stomach [part of]; Z98.84 Bariatric surgery status
CPT/HCPCS: 99214

== ENCOUNTER 2025-02-13 10:20 | Outpatient (AMB) | payer MEDICAID, SELFPAY ==
--- NOTE | 2025-02-13 10:29 | MHC.OFFVISWM ---
VS Expanded 02/13/25 10:37 BP 136/86 Blood Pressure Location Rt brachial Blood Pressure Position Sitting Pulse 63 Pulse Source Pulse Oximeter Temp 96.9 F Temperature Source Temporal Artery Scan Pulse Oximetry 98 Oxygen Delivery Method Room Air Height 5 ft 3 in Weight 193 lb 6.4 oz BMI 34.3 Body Fat % 33.2 Body Fat Mass 64.2 Fat Free Mass 129.2 Visceral Fat Rating 8.0 Body Water % 47.5 Body Water Mass 92.0 Muscle Mass/Score 122.6 Basal Metabolic Rate/Score 1,742 Intake Visit Reasons: (OV) PO LSG 12/04/2021 *GLP-1* Career Development Coordinator Required: Yes Career Development Coordinator Services: Career Development Coordinator Present Career Development Coordinator Name: kinyarwanda cmi Allergies No Known Allergies Allergy (Verified 02/13/25 10:32) Medication List - Last Reconciled 02/13/25 by LIZA Mercedes amlodipine 5 mg PO DAILY hydrochlorothiazide 25 mg PO DAILY HPI Comments Details: Patient is a 49-year-old female who returns to the office today in follow-up. She is 3 years 2 months post sleeve gastrectomy performed on 12/04/2021. She was last seen in the office in 01/02/2025 with a weight of 191.6 lb. Weight today is 193.4 lb with a BMI of 34.3. She has gained 1.8 lb. She has been traveling back and forth to her home country of [place]. She states that over the last 2 months she has noticed epigastric discomfort and reflux. She states that nothing has changed in her meal plan or types of food. She recently started a migraine medication and BP medication but does not know the names. She has also had increase in stress over the last 2 months. She has an appointment for the first time with on 01/11/25. She states that if she eats too much she has the pain. States she does not eat too quickly. She was given a meal plan at her last visit but did not like the protein supplement and did not communicate. She states that her went and bought the protein powder, she would prefer to use the ready to drink shake. She has stopped eating sweets. reccomended Meal plan: Patient wakes at 430. Recommend bedtime at 930. Using premier protein ready to drink shake per her request 6 oz of Premier protein shake mixed with 4 oz of unsweetened almond milk at 5-7 Repeat shake at 9-11 Atkins bar at 12-2 Meal at 3 pm with 6 forks of protein and 6 forks of vegetables. exercise plan: sometimes walks outside, 3-4 days per week, 2 hours no gym due to anabaptist culture [facility] Medical History Liver fibrosis Steatosis, liver COVID-19 vaccine series completed Leg pain Back pain Hypertension GERD (gastroesophageal reflux disease) Morbid obesity Surgical History S/P laparoscopic sleeve gastrectomy History of H/O umbilical hernia repair Hx laparoscopic cholecystectomy Social History Are you a primary rn home care to a significant other at home: No Do you presently have visiting nurse or other home services: No Alcohol intake: never Patient Tobacco Use Status: Never used Tobacco service: No Current occupational status: unemployed Physical Exam Const General: healthy appearing and no acute distress Resp Effort & Inspection: normal respiratory effort Auscultation: clear to auscultation bilaterally Cardio Rate: regular rate Rhythm: regular rhythm GI Auscultation: normal bowel sounds Extrem General: Yes normal to inspection Assessment & Plan Assessment & Plan (1) S/P laparoscopic sleeve gastrectomy: Code(s): Z98.84 - Bariatric surgery status Category: Surgical Plan: Discussed the importance of following the meal plan exactly. Discussed the importance of communicating her weight weekly and texting with any questions or concerns. Discussed the importance of tracking calories. She does not go to the gym due to her aerobic culture however she is walking outside. She has not been tracking calories or distance. She will had difficulty with her phone and I had recommended that she drive the [place] that she walks so that she may no approximate distance. Goal is walking approximately 3 miles or more per day. We will have her return to the office in approximately 4-5 weeks.
[2025-02-13 10:37] VITALS: BP 136/86; PULSE 63; TEMP 36.1; O2SAT 98; BMI 34.3
--- OUTSIDE RECORDS SUMMARY | 2025-02-13 11:50 | XMS_ITS | Clinical Summary ---
Author Organization [facility] Address [address] [place] [address] Care Team Providers Care Medical Art Therapist Name Role Phone Laureen Hicks JULIETH Primary Care Provider [phone] Source Comments PLEASE NOTE, if this patient is a minor, it may be UNLAWFUL to discuss sensitive information that is contained in these records (such as FAMILY PLANNING, MENTAL HEALTH or SUBSTANCE ABUSE) with the minor patient's parent or other person without the patient's specific authorization.[facility] Allergies No known active allergies Medications nystatin (MYCOSTATIN) 100,000 unit/gram powderIndicatio ns:Candidiasis, intertrigo Apply topically 4 (four) times daily 15 g 1 08/23/20 19 Active scopolamine base (TRANSDERM-SCOP ) 1 mg over 3 days patchIndication s:Vertigo Place 1 Patch onto the skin every third day (every 72 hours) 10 Patch 1 11/23/19 20 Active biotin 5 mg tabIndications: Female pattern hair loss Take 1 Tab by mouth once daily 90 Tab 2 08/02/20 20 Active minoxidiL (ROGAINE) 2 % external solutionIndicat ions:Female pattern hair loss Apply topically 2 (two) times daily For hair/scalp 60 mL 2 08/02/20 20 Active telmisartan (MICARDIS) 80 mg tabletIndicatio ns:Hypertension , benign Take 1 Tablet by mouth once daily For BP ( increase in dose) 90 Tablet 1 09/12/20 24 Active SUMAtriptan succinate (IMITREX) 100 mg tabletIndicatio ns:Frontal headache Take 1 Tablet by mouth once daily as needed for other reason (headache) If not better in 2 hour, then take 1 more tab. Max 2 tabs per day. 20 Tablet 2 09/12/20 24 Active cholecalciferol , vitamin D3, (VITAMIN D3) 1,250 mcg (50,000 unit) capsule TAKE 1 CAPSULE BY MOUTH ONE TIME PER WEEK 12 Capsule 3 09/13/20 24 Active fluticasone (FLONASE) 50 mcg/actuation nasal sprayIndication s:Nasal congestion PLACE 1 SPRAY IN BOTH NOSTRILS ONCE DAILY FOR 14 DAYS 32 mL 1 09/19/20 24 Active baclofen (LIORESAL) 10 mg tablet Take 10 mg by mouth once daily as needed 12/29/19 25 Active diclofenac sodium (VOLTAREN) 1 % gel APPLY 1 APPLICATION ON THE SKIN TWICE A DAY NEEDED FOR PAIN Authorized by: ED ZAPIEN 11/29/19 25 Active naproxen (NAPROSYN) 500 mg tablet TAKE 1 TO 2 TABLETS BY MOUTH DAILY NEEDED Authorized by: BEN SKINNER 12/29/19 25 Active propranoloL (INDERAL) 10 mg tabletIndicatio ns:Hypertension , unspecified type Take 1 Tablet by mouth 2 (two) times daily for 90 days 180 Tablet 01/12/20 25 025 Active amLODIPine (NORVASC) 5 mg tabletIndicatio ns:Hypertension , unspecified type Take 1 Tablet by mouth once daily 90 Tablet 01/16/20 25 Active amLODIPine (NORVASC) 2.5 mg tablet Take 2.5 mg by mouth once daily For BP 11/02/19 25 025 Discontinu ed(Quantit y/Dosage and/or Sig change) metroNIDAZOLE (FLAGYL) 500 mg tabletIndicatio ns:BV (bacterial vaginosis) Take 1 Tablet by mouth 2 (two) times daily for 7 days 14 Tablet 01/18/20 25 025 fluconazole (DIFLUCAN) 150 mg tablet Take 1 Tablet by mouth once for 1 dose 1 Tablet 01/20/20 25 025 Active Problems Problem Noted Date Diagnosed Date Class 2 severe obesity due t o excess calories with serious comorbidity and body mass index (BMI) of 35.0 to 35.9 in adult ([facility]) 01/11/2025 Lipoma of liver 09/16/2024 Overview (09/16/2024): 08/30/2024: [facility]: CT of angiogram of abdomen: ANGIOGRAPHIC [...] Patent. Visualized iliac arteries: Patent. NON-ANGIOGRAPHIC FINDINGS Public Policy Coordinator View Findings, Lines and Tubes: None. Trachea [...] 05/04/2017 Overview (05/04/2017): CT abd/pelvis 04/25/17 at [facility] = 16 mm liver lesion indeterminate Chronic left-sided low back pain with left-sided sciatica 01/25/2017 Overview (11/14/2020): SEES Dr Skinner. Rheum f/u Dr. Saavedra in [place] GERD (gastroesophageal reflux disease) 7 Sacralization of lumbar vertebra 07/07/2016 Overview (07/07/2016): Of L5 vertabra. F/u Rheum Dr. Luna in [place]. Chronic pain of both knees 11/19/2015 Overview (01/25/2017): [place] [facility] [place] Abdominal wall hernia, supra -umbilical s/p laproscopic repair 06/201512/10/2014 Vitamin D deficiency 11/12/2013 Overview (11/12/2013): =14. Bilateral carpal tunnel syndrome 11/10/2013 Overview (06/21/2015): F/U [facility] & seen by Neuro Dr. Moran. S/p left carpal tunnel release 12/30/14. Morbid obesity ([facility]) 09/28/2013 Resolved Problems Problem Noted Date Diagnosed Date Resolved Date Vagina itching 03/13/2015 11/19/2015 Overview (03/13/2015): Tx with terazol # cream Encounters Date Type Department Care Team Description 01/19/2025 Results Follow-Up [address] [phone] Romana Vivas NP 01/17/2025 1:40 PM EDT Office Visit [address] [address] Romana Vivas NP Alqaisy, Rufaida Well woman exam (Primary Dx); BV (bacterial vaginosis) 01/15/2025 Interim Notes [address] [address] India Perry PA-C Hypertension, unspecified type (Primary Dx); PTSD (post-traumatic stress disorder) 01/11/2025 1:20 PM EDT Office Visit [address] [phone] Taqueria Saunders, PharmD Alqaisy, Rufaida Hypertension, benign (Primary Dx); Class 2 severe obesity due to excess calories with serious comorbidity and body mass index (BMI) of 35.0 to 35.9 in adult ([facility]); Medication management 11/21/2024 10:00 AM EST Telemedicine Visit [address] [address] Laureen Hicks, JULIETH Alqaisy, Rufaida Syncope, unspecified syncope type (Primary Dx); Hypertension, benign; Psychogenic nonepileptic seizure; Atypical migraine; Thyroid nodule; Tachycardia from Last 3 Months Immunizations Immunization Administration Dates Next Due Flu, Preservative Free [...] Sign Reading Time Taken Comments Blood Pressure 110/80 01/11/2025 1:14 PM EDT Pulse 55 01/11/2025 1:14 PM EDT Temperature 37.1 ??C (98.7 ??F) 01/11/2025 1:14 PM ED T Respiratory Rate 16 01/11/2025 1:14 PM EDT Oxygen Saturation 100% 01/11/2025 1:14 PM EDT Inhaled Oxygen Concentration - - Weight 90 kg (198 lb 6.4 oz) 01/11/2025 1:14 PM EDT Height 160 cm (5' 3 ) 01/11/2025 1:14 PM EDT Body Mass Index 35.14 01/11/2025 1:14 PM EDT Plan of Treatment Upcoming Encounters Date Type Department Care Team (Late st Contact Info) Description 02/15/2025 10:20 AM EDT Office Visit [place] [address] [place] [address] Taqueria Saunders, PharmD [address] [place] [address] Vincent Boykin [address] [place], [place] [phone] Health Maintenance Due Date Last Done Comments Anxiety Screening 1976 CT Colonography 2021 Colonoscopy 2021 Colorectal Cancer Screening 2021 FIT/gFOBT 2021 Fecal DNA 2021 Flexible Sigmoidoscopy 2021 HPV Screening 07/26/2023 07/26/2018 [id number] ( season) 2024 11/20/2022, 11/14/2021, 03/27/2021, Additional history exists Breast Cancer Screening (Mammogram) 07/21/2024 07/21/2023, 05/29/2021, 05/29/2021, Additional history exists Annual Preventive Care Visit 09/21/202402/2023, 08/07/2021, 08/02/2020, Additional history exists Depression Annual Screen 10/18/2024 01/18/2024, 01/16 Relationship Safety Screening/Counseling 08/08/2025 08/08/2024, 01/18/2024, 11/20/2022, Additional history exists Diabetes Screening 09/12/2025 09/12/2024, 0 07/06/2024, 01/18/2024, Additional history exists Tobacco Screening 01/11/2026 01/11/2025, 09/21/2023 Lipid Screening 01/17/2027 01/18/2024, 12/2022, 03/05/2021, Additional history exists Cervical Cancer Screening 01/17/2030 Pap + HPV 01/17/2030 01/17/2025, 07/26/2018 Pap Smear 01/17/2030 01/17/2025, 06/2018, 02/13/2013 Imm-DTaP/Tdap/Td (4 - Td or Tdap) 01/17/2034 01/18/2024, 12/11/2013, 09/28/2013 Imm-Hepatitis B Completed 04/06/2014, 11/19, 11/10/2013 HIV Screening Completed 06/21/2018, 01/2018 (Managed by Outside Provider) Hepatitis C Screening Completed 05/31/2020 Imm-Influenza Discontinued 11/14/2021, 07/10/2013 Alcohol and Drug Screen Completed 01/12/20, 01/18/2024, 11/20/2022, Additional history exists Cervical Ablation/Cold-Knife Conization Discontinued Cervical Cryotherapy Discontinued [...] sugar intake Diet No Lori Hillman RD Procedures Procedure Name Priority Date/Time Associated Diagnosis Comments SURESWAB ADVANCED VAGINITIS PLUS, TMA Routine 01/17/2025 2:02 PM EDT Well woman exam THIN PREP IMAGE PAP + HPV RNA E6/E7 W/RFLX HPV 16, 18/45 Routine 01/17/2025 2:02 PM EDT Well woman exam REFERRAL SCANNED DOCUMENT 01/02/2025 3:00 AM EDT LAB SCANNED DOCUMENT 01/02/2025 3:00 AM EDT LAB SCANNED DOCUMENT 01/02/2025 3:00 AM EDT LAB SCANNED DOCUMENT 01/02/2025 3:00 AM EDT IMAGING SCANNED DOCUMENT 12/21/2024 3:00 AM EST US THYROID Routine 12/19/2024 3:00 AM EST Thyroid nodule REFERRAL TO CARDIOLOGY Urgent 3:00 AM EST Syncope, unspecified syncope type Abnormal ECG COMPREHENSIVE METABOLIC PANEL Routine 09/12/2024 5:28 PM [...] Recently Relevant to Health Maintenance Results * (ABNORMAL) SURESWAB ADVANCED VAGINITIS PLUS, TMA (01/17/2025 2:02 PM EDT) CHLAMYDIA TRACHOMATIS RNA, TMA NOT DETECTED NOT DETECTED [facility] NEISSERIA GONORRHOEAE RNA, TMA NOT DETECTED NOT DETECTED [facility] COMMENT [facility] SURESWAB(R) ADV BACTERIAL VAGINOSIS (BV), TMA NEGATIVE NEGATIVE [facility] ALESIA SPECIES DETECTED(A) NOT DETECTED [facility] ALESIA GLABRATA NOT DETECTED NOT DETECTED [facility] COMMENT [facility] TRICHOMONAS VAGINALIS (TV), TMA NOT DETECTED NOT DETECTED [facility] Swab Vaginal structure / Unknown 01/17/2025 2:02 PM EDT 01/18/2025 3:17 AM EDT Narrative [facility] - 01/18/2025 7:43 PM EDT Alesia species C. albicans, C. tropicalis, C. parapsilosis, and/or C. dubliniensis can be detected, but not differentiated, in the Alesia spp. result. For additional information, please refer to https://Deadstock Network/faq/VFD616 (This link is being provided for information/ educational purposes only.) Romana Vivas NP LAB - NO BLOOD DRAW Final Re sult [facility] [address] [address], [facility] [address] [address] * THIN PREP IMAGE PAP + HPV RNA E6/E7 W/RFLX HPV 16, 18/45 (01/17/2025 2:02 PM EDT) CLINICAL INFORMATION See Note [facility] Comment:Routine exam LMP See Note [facility] Comment:[id number] PREV. PAP See Note [facility] Comment:NONE GIVEN PREV. BX See Note [facility] Comment:NONE GIVEN SOURCE See Note [facility] Comment:Cervix STATEMENT OF ADEQUACY See Note [facility] Comment: Satisfactory for evaluation. Endocervical/transformation zone component absent. INTERPRETATION/RESU LT See Note [facility] Comment: Cytology Results: Negative for intraepithelial lesion or malignancy. INFECTION See Note [facility] Comment: Fungal organisms morphologically consistent with Alesia spp. COMMENT See Note [facility] Comment: This Pap test has been evaluated with computer assisted technology. OIL RAG WASHER See Note [facility] Comment: KF, CT(ASCP) CT screening location: [address] ??[address] COMMENT [facility] HPV MRNA E6/E7 Not Detected Not Detected [facility] Comment: Methodology: Supervisor Dog License Officer-Mediated Amplification This assay detects E6/E7 viral messenger RNA (mRNA) from 14 high-risk HPV types (16,18,31,33,35,39,45,51,52,56,58,59,66,68). Cervical sources are required for HPV testing. If a vaginal source from a patient who has had a total hysterectomy with removal of cervix was submitted, please contact the testing laboratory for alternative testing options. For additional information, please refer to http://T[employer] Attire.People to Remember/faq/RDP344k0 (This link if provided for information/ educational purposes only.) Swab Cervix uteri structure / Unknown 01/17/2025 2:02 PM EDT 01/18/2025 6:28 AM EDT Narrative [facility] - 01/20/2025 10:36 AM EDT EXPLANATORY NOTE: The Pap is a screening test for cervical cancer. It is not a diagnostic test and is subject to false negative and false positive results. It is most reliable when a satisfactory sample, regularly obtained, is submitted with relevant clinical findings and history, and when the Pap result is evaluated along with historic and current clinical information. Romana Vivas BLOCK OPERATOR LAB - NO BLOOD DRAW Final Re sult [facility] [address] [address], [facility] [address] [address] * REFERRAL SCANNED DOCUMENT (01/02/2025 3:00 AM EDT) 01/02/2025 3:00 AM EDT Laureen Gurung TAKER OFF DRYING KILN SCAN REFERRAL Final Result * LAB SCANNED DOCUMENT (01/02/2025 3:00 AM EDT) Only the most recent of3 resultswithin the time period is included. 01/02/2025 3:00 AM EDT Laureen Gurung TAKER OFF DRYING KILN SCAN LAB Final Result * IMAGING SCANNED DOCUMENT (12/21/2024 3:00 AM EST) 12/21/2024 3:00 AM EST Laureen Gurung TAKER OFF DRYING KILN SCAN IMAGING Final Result * US THYROID (12/19/2024 3:00 AM EST) 12/19/2024 3:00 AM EST Laureen Hicks [facility] Final Result [facility] Corporate Office [address], [address] [place] [address], [place] [phone] * REFERRAL TO CARDIOLOGY (12/13/2024 3:00 AM EST) 12/13/2024 3:00 AM EST Laureen Hicks [facility] REFERRAL Edited Result - Final * COMPREHENSIVE METABOLIC PANEL (09/12/2024 5:28 PM EST) GLUCOSE 95 65 - 99 mg/dL [facility] Comment: ?Fasting reference interval UREA NITROGEN (BUN) 13 7 - 25 mg/dL [facility] CREATININE (blood) 0.96 0.50 - 0.99 mg/dL [facility] EGFR 73 > OR = 60 mL/min/1. 73m2 [facility] BUN/CREATININE RATIO SEE NOTE: [facility] Comment: ?? Not Reported: BUN and Creatinine are within ?? reference range. ? SODIUM 138 135 - 146 mmol/L [facility] POTASSIUM 3.7 3.5 - 5.3 mmol/L [facility] CHLORIDE 103 98 - 110 mmol/L [facility] CARBON DIOXIDE 29 20 - 32 mmol/L [facility] CALCIUM 9.2 8.6 - 10.2 mg/dL [facility] PROTEIN, TOTAL 6.8 6.1 - 8.1 g/dL [facility] ALBUMIN 4.7 3.6 - 5.1 g/dL [facility] GLOBULIN 2.1 1.9 - 3.7 g/dL (calc) [facility] ALBUMIN/GLOBULI N RATIO 2.2 1.0 - 2.5 (calc) [facility] BILIRUBIN, TOTAL 0.3 0.2 - 1.2 mg/dL [facility] ALKALINE PHOSPHATASE 33 31 - 125 U/L [facility] AST 11 10 - 35 U/L [facility] ALT 12 6 - 29 U/L [facility] Blood Blood / Unknown 09/12/2024 5 :28 PM EST 09/12/2024 5:29 PM EST Laureen Leightonprudence [facility] LAB - BLOOD DRAW Final Result [facility] [address] [address], [facility] [address] [place] [address] * (ABNORMAL) LIPID PANEL (01/18/2024 4:19 PM EDT) CHOLESTEROL, TOTAL 205(H) <200 mg/dL [facility] HDL CHOLESTEROL 48(L) > OR = 50 mg/dL [facility] TRIGLYCERIDES 61 <150 mg/dL [facility] LDL-CHOLESTEROL 142(H) 99 mg/dL (calc) [facility] Comment: Reference range: <100 Desirable range <100 mg/dL for primary prevention; ?? <70 mg/dL for patients with CHD or diabetic patients with > or = 2 CHD risk factors. LDL-C is now calculated using the Hugo-Bernadette calculation, which is a validated novel method providing better accuracy than the Friedewald equation in the estimation of LDL-C. Hugo SS et al. FABIANA. 2013;310(19): 5475-4311 (http://education.Moprise/faq/YES643) CHOL/HDLC RATIO 4.3 <5.0 (calc) [facility] NON-HDL CHOLESTEROL 157(H) <130 mg/dL (calc) [facility] Comment: For patients with diabetes plus 1 major ASCVD risk factor, treating to a non-HDL-C goal of <100 mg/dL (LDL-C of <70 mg/dL) is considered a therapeutic option. Blood Blood / Unknown 01/18/2024 4 :19 PM EDT 01/18/2024 4:19 PM EDT Narrative [facility] - 01/19/2024 4:49 AM EDT FASTING:YES Laureen Kurt [facility] LAB - BLOOD DRAW Final Result [facility] [address] [address], [facility] [address] [place] [address] * HISTORIC MAMMOGRAM (07/21/2023 3:00 AM EDT) 07/21/2023 3:00 AM EDT Laureen Hicks [facility] Edited Result - Final * HEPATITIS C ANTIBODY (05/31/2020 8:43 AM EDT) HEPATITIS C VIRUS SCREEN NEGATIVE NEGATIVE [facility] Blood specimen (specimen) Blood / Unknown 05/31/2020 8:43 AM EDT 05/31/2020 8:50 AM EDT Narrative [facility] - 05/31/2020 1:48 PM EDT [employer], [place] [address] Outside Sales Representative Insurance - Catalina Peña MD [place] [id number] ORD# [id number] Laureen Hicks [facility] - BLOOD DRAW Final Result Performing Organization Address City/[facility] Co de Phone Number [address] [address], * PAP SMEAR W/HPV, ABSTRACTED (07/26/2018 4:03 PM EDT) PAP SMEAR INTERPRETATION NORMAL NORMAL [facility] HPV (HUMAN PAPILLOMA) NEGATIVE NEGATIVE [facility] HPV TYPE 16 NEGATIVE NEGATIVE [facility] HPV TYPE 18 NEGATIVE NEGATIVE [facility] Specimen from uterine cervix (specimen) Impressions [facility] - 07/26/2018 4:03 PM EDT ThinPrep Pap Negative for squamous intraepithelial lesion and malignancy HPV Negative Provider [facility] - NO BLOOD DRAW Final Result [facility] [address] [place] [address], [place] * HIV, ABSTRACTED (06/21/2018 4:29 PM EDT) Blood specimen (specimen) Blood / Unknown 06/21/2018 4:29 PM EDT us Provider [facility] - BLOOD DRAW Final Result [facility] [address] [place] [address], [place] from Last 3 Months or Most Recently Relevant to Health Maintenance Insurance HEALTH SAFETY NET DENTAL [employer] [facility] [place] [address] [facility] Girl Meets Dress Care Teams Medical Art Therapist Relationship Specialty Start Date End Date Laureen Hicks FNP [address] [place] [address] PCP - General Internal Medicine 08/23/19
--- OUTSIDE RECORDS SUMMARY | 2025-02-13 11:50 | XMS_ITS | Encounter Summary ---
Author Organization [facility] Address [address] [place] [address] Care Team Providers Care Fur Finisher Name Role Phone Laureen Hicks JULIETH Primary Care Provider [phone] Reason for Visit * Reason Comments Behavioral Health Assessment Depression Encounter Details Date Type Department Care Team ([facility] Contact Info) Description 01/01/2016 / Visits [address] [phone] Rajni Nazario, COUNSELOR [address] [place] [phone] Social History Tobacco Use Types Packs/Day Years [...] Upcoming Encounters Date Type Department Care Team ([facility] Contact Info) Description 02/15/2025 10:20 AM EDT Office Visit [facility] [address] [place] [phone] Taqueria Saunders PharmD [address] [place] [address] Vincent Boykin [address] [place] [address] documented as of this encounter Goals Goal [...] on filedocumented in this encounter Care Teams Fur Finisher Relationship Specialty Start Date End Date Laureen Hicks FNP [address] [place] [address] PCP - General Internal Medicine 08/23/19 documented as of this encounter
--- OUTSIDE RECORDS SUMMARY | 2025-02-13 11:50 | XMS_ITS | Encounter Summary ---
Author Organization [facility] Address [address] [place] [address] Care Team Providers Care Furniture Mover Helper Name Role Phone Laureen Hicks JULIETH Primary Care Provider [phone] Encounter Details Date Type Department Care Team (Late st Contact Info) Description 01/19/2025 Results Follow-Up [facility] [address] [place] [phone] Romana Vivas, EMORY [address] [place] [address] Social History Tobacco Use Types Packs/Day Years [...] AM PDT documented as of this encounter Miscellaneous Notes * Result Encounter Note - Romana Vivas NP - 01/19/2025 1:16 PM EDT Stop flagyl pt has BV instead will send medication for this Consume More Probiotics. Switch To A Control That Doesn't Contain Estrogen. Extra estrogen inthe body can lead to the production of more yeast. Wear Cotton Underwear. Stay Away From Scented Feminine Hygiene Products And Soaps. Do not Douche. Clean Your Vagina Often. documented in this encounter Plan of Treatment Upcoming Encounters Date Type Department Care Team (Late st Contact Info) Description 02/15/2025 10:20 AM EDT Office Visit [facility] [address] [place] [phone] Taqueria Saunders PharmD [address] [place] [address] Alqaisy, Rufaida [address] [place] [address] documented as of this encounter Goals Goal [...] Diagnoses Not on filedocumented in this encounter Additional Health Concerns Assessment Noted Time PHQ-9 Depression Total Score: 0 01/18/20 24 3:50 PM PDT documented as of this encounter Care Teams Furniture Mover Helper Relationship Specialty Start Date End Date Laureen Hicks FNP [address] [place] [address] PCP - General Internal Medicine 08/23/19 documented as of this encounter
== END 2025-02-13 10:56 | disposition home or self-care (01) ==
LOC: HO.HBS 10:21
PROVIDERS: PCP Nurse Practitioner Family; Visit Provider Physician Assistant Surgical
DX: E66.09 Other obesity due to excess calories (principal); E66.811 Obesity, class 1; Z68.34 Body mass index [BMI] 34.0-34.9, adult; Z98.84 Bariatric surgery status
CPT/HCPCS: 99213

== ENCOUNTER → 2025-02-13 10:20 | Outpatient (BNVA) | payer MEDICAID, SELFPAY | PROVIDERS: PCP Nurse Practitioner Family; Visit Provider Physician Assistant Surgical | DX: Z98.84 Bariatric surgery status (principal) | CPT/HCPCS: 99212 ==

== ENCOUNTER 2025-05-03 10:38 | Outpatient (AMB) | payer MEDICAID, SELFPAY ==
--- NOTE | 2025-05-03 10:56 | MHC.OFFVISWM ---
VS Expanded 05/03/25 11:07 BP 133/80 Blood Pressure Location Rt brachial Blood Pressure Position Sitting Pulse 59 Pulse Source Pulse Oximeter Temp 97.7 F Temperature Source Temporal Artery Scan Pulse Oximetry 99 Oxygen Delivery Method Room Air Height 5 ft 3 in Weight 191 lb 12.8 oz BMI 34.0 Body Fat % 34.3 Body Fat Mass 65.6 Fat Free Mass 125.8 Visceral Fat Rating 8.0 Body Water % 46.8 Body Water Mass 89.8 Muscle Mass/Score 119.4 Basal Metabolic Rate/Score 1,703 Intake Visit Reasons: (OV) PO LSG 12/04/2021 *GLP-1* [employer] Required: Yes D[employer] Driver Services: Dray Truck Driver Present Dray Truck Driver Name: Rubenr - turkmen cmi Allergies No Known Allergies Allergy (Verified 05/03/25 11:02) Medication List - Last Reviewed 05/03/25 by Bina Srivastava CMA amlodipine 5 mg PO DAILY hydrochlorothiazide 25 mg PO DAILY Held on 12/04/21. Instructions: until discussed with Dr Kraus sumatriptan succinate mg PO HPI Comments Details: Patient is a 49-year-old female who returns to the office today in follow-up. She is 3 years 5 months post sleeve gastrectomy performed on 12/04/2021. She was seen in the office on 12/1824 with a weight of 191.6 lb. Weight today is 191.8 lb with a BMI of 34.9. She has gained 0.2 lb since she was 1st seen and approximately 1.6 lb down since her last visit in February. She states that since the last visit, she has not been following the meal plan. She does occasionally get epigastric discomfort although this occurs when she eats or drinks too quickly. She was given a meal plan at her last visit but did not like the protein supplement and did not communicate. She states that her went and bought the protein powder, but she would prefer to use the ready to drink shake. She has stopped eating sweets. reccomended Meal plan: Patient wakes at 430. Recommend bedtime at 930. Using premier protein ready to drink shake per her request 6 oz of Premier protein shake mixed with 4 oz of unsweetened almond milk at 5-7 Repeat shake at 9-11 Atkins bar at 12-2 Meal at 3 pm with 6 forks of protein and 6 forks of vegetables. 5 pm, orange or 1/2 cup strawberries or blueberries exercise plan: none, states can purchase a treadmill or stationary bike no gym due to confucianism culture [facility] Medical History Liver fibrosis Steatosis, liver COVID-19 vaccine series completed Leg pain Back pain Hypertension GERD (gastroesophageal reflux disease) Morbid obesity Surgical History S/P laparoscopic sleeve gastrectomy History of H/O umbilical hernia repair Hx laparoscopic cholecystectomy Social History Are you a primary healthcare administration internship to a significant other at home: No Do you presently have visiting nurse or other home services: No Alcohol intake: never Patient Tobacco Use Status: Never used Tobacco service: No Current occupational status: unemployed Physical Exam Const General: healthy appearing and no acute distress Resp Effort & Inspection: normal respiratory effort Auscultation: clear to auscultation bilaterally Cardio Rate: regular rate Rhythm: regular rhythm GI Auscultation: normal bowel sounds Extrem General: Yes normal to inspection Assessment & Plan Assessment & Plan (1) S/P laparoscopic sleeve gastrectomy: Code(s): Z98.84 - Bariatric surgery status Category: Surgical Plan: Patient was given the meal plan again, in writing, in the office. She has not been exercising at all as she had been taking care of her son at home. She will not go to the gym due to her culture a beliefs. Discussed purchasing a treadmill or stationary bike and she states that she can do this. Discussed goal of burning 300 calories per day, 7 days per week. We will have her return to the office in a proximally 2 months. Encouraged to text with any questions or concerns as well as texting her weight weekly
[2025-05-03 11:07] VITALS: BP 133/80; PULSE 59; TEMP 36.5; O2SAT 99; BMI 34.0
--- OUTSIDE RECORDS SUMMARY | 2025-05-03 11:12 | XMS_ITS | Clinical Summary ---
Author Organization [facility] [address] [facility] Address [address] [place] [address] Phone Care Team Providers Care Pull Over Name Role Phone Emeli Wasserman NP Primary Care Provide r Allergies No known active allergies Medications No known medications Encounters Date Type Department Care Team Description 03/16/2025 Telephone Gastroenterology - [address] [phone] Christopher Keene MD from Last 3 Months Social History Tobacco Use Types Packs/Day Years Used Date Smoking Tobacco: Never Assessed Comments Unknown Sex and Gender Information Value Date Recorded Sex Assigned at Female 03/16/2025 11:31 AM EDT Legal Sex Female 7:02 PM EST Gender Identity Female 03/16/2025 11:31 AM EDT Sexual Orientation Not on file Plan of Treatment Upcoming Encounters Date Type Department Care Team (Late st Contact Info) Description 05/23/2025 2:00 PM EDT Appointment [facility] Endoscopy [address] [place] [phone] Donna Sanchez MD [address] [id number] Health Maintenance Due Date Last Done Comments Breast Cancer Screening 1976 DTaP,Tdap,and Td Vaccines (1 - Tdap) 1995 Hepatitis B Vaccines (1 of 3 - 19+ 3-dose series) 1995 Cervical Cancer Screening: P ap Smear 1997 COVID-19 Vaccine (2023-2 5 season) 2024 Colorectal Cancer Screening: Colonoscopy 03/16/2025 Depression Screening 03/16/2025 HIV Screening 03/16/2025 Hepatitis C Screening 03/16/2025 Social Influencers of Health Screening 03/16/2025 Influenza Vaccine (#1) 2025 HIB Vaccines Aged Out No longer eligi ble based on patient's age to complete this topic HPV Vaccines Aged Out No longer eligi ble based on patient's age to complete this topic Hepatitis A Vaccines Aged Out No long er eligible based on patient's age to complete this topic IPV Vaccines Aged Out No longer eligi ble based on patient's age to complete this topic MMR Vaccines Aged Out No longer eligi ble based on patient's age to complete this topic Meningococcal ACWY Vaccine Aged Out N o longer eligible based on patient's age to complete this topic Meningococcal B Vaccine Aged Out No l onger eligible based on patient's age to complete this topic Pneumococcal Vaccine: Pediat rics (0 to 5 Years) and At-Risk Patients (6 to 49 Years) Aged Out No longer eligible b ased on patient's age to complete this topic RSV Immunization Patients Un jackie 20 months Aged Out No longer eligible b ased on patient's age to complete this topic Varicella Vaccines Aged Out No longer eligible based on patient's age to complete this topic Insurance MEDICAID - [place] Care Teams Pull Over Relationship Specialty Start Date End Date Emeli Wasserman NP [address] [place] [address] PCP - General Family Medicine 03/16/25
--- OUTSIDE RECORDS SUMMARY | 2025-05-03 11:13 | XMS_ITS | Clinical Summary ---
Author Organization [facility] Address [address] [place] [address] Care Team Providers Care Advance Agent Name Role Phone Laureen Hicks JULIETH Primary Care Provider [phone] Source Comments PLEASE NOTE, if this patient [...] hair/scalp 60 mL 2 08/02/20 20 Active cholecalciferol , vitamin D3, (VITAMIN D3) [...] Authorized by: BEN SKINNER 12/29/19 25 Active amLODIPine (NORVASC) 10 mg tablet Take 1 Tablet by mouth once daily 90 Tablet 02/28/20 25 Active SUMAtriptan succinate (IMITREX) 100 mg tabletIndicatio ns:Frontal headache Take 1 Tablet by mouth once daily as needed for other reason (headache) If not better in 2 hour, then take 1 more tab. Max 2 tabs per day. 20 Tablet 2 02/28/20 25 Active hydroCHLOROthia zide (HYDRODIURIL) 25 mg tablet Take 1 Tablet by mouth once daily 90 Tablet 03/01/20 25 Active telmisartan (MICARDIS) 80 mg tabletIndicatio ns:Hypertension , benign Take 1 Tablet by mouth once daily For BP ( increase in dose). 90 Tablet 1 03/22/20 25 Active propranoloL (INDERAL) 10 mg tabletIndicatio ns:Hypertension , unspecified type TAKE 1 TABLET BY MOUTH 2 TIMES DAILY FOR 90 DAYS. 180 Tablet 04/13/20 25 025 Active propranoloL (INDERAL) 10 mg tabletIndicatio ns:Hypertension , unspecified type Take 1 Tablet by mouth 2 (two) times daily for 90 days 180 Tablet 01/12/20 25 025 Discontinued Active Problems Problem Noted Date Diagnosed Date Class 1 obesity due to exces s calories with serious comorbidity and body mass index (BMI) of 33.0 to 33.9 in adult 01/11/2025 Lipoma of liver 09/16/2024 Overview (09/16/2024): 08/30/2024: [facility]: CT of angiogram of abdomen: ANGIOGRAPHIC [...] Patent. Visualized iliac arteries: Patent. NON-ANGIOGRAPHIC FINDINGS Chemical Operator View Findings, Lines and Tubes: None. Trachea [...] 05/04/2017 Overview (05/04/2017): CT abd/pelvis 04/25/17 at [facility] = 16 mm liver lesion indeterminate Chronic left-sided low back pain with left-sided sciatica 01/25/2017 Overview (11/14/2020): SEES Dr Skinner. Rheum f/u Dr. Saavedra in [place] GERD (gastroesophageal reflux disease) 7 Sacralization of lumbar vertebra 07/07/2016 Overview (07/07/2016): Of L5 vertabra. F/u Rheum Dr. Luna in [place]. Chronic pain of both knees 11/19/2015 Overview (01/25/2017): F/u Rheum Dr. Saavedra @ [facility]- Abdominal wall hernia, supra -umbilical s/p laproscopic repair 06/201512/10/2014 Vitamin D deficiency 11/12/2013 Overview (11/12/2013): =14. Bilateral carpal tunnel syndrome 11/10/2013 Overview (06/21/2015): F/U [facility] & seen by Neuro Dr. Moran. S/p left carpal tunnel release 12/30/14. Morbid obesity (CMS & HHS-HCC) 09/28/2013 Resolved Problems Problem Noted Date Diagnosed Date Resolved Date Vagina itching 03/13/2015 11/19/2015 Overview (03/13/2015): Tx with terazol # cream Encounters Date Type Department Care Team Description 04/12/2025 9:40 AM EDT Office Visit [address] [phone] Jean-Paul Sanders 03/22/2025 11:20 AM EDT Office Visit [address] [phone] AntilTaqueria, PharmD Quique Sanders 02/27/2025 10:00 AM EDT Office Visit [address] [phone] Emeli Canas FNP Alqaisy, Rufaida 02/15/2025 10:20 AM EDT Office Visit [address] [phone] AntilTaqueria, PharmD Alqaisy, Rufaida from Last 3 Months Immunizations Immunization Administration Dates Next Due Flu, Preservative Free 11/14/2021 Hep B, Adult/Adol ([id number]/RECOMBIVAX-ADULT) 04/06/2014,12/11/2013,11/10/2013 History Of Varicella 09/28/2013 INFLUENZA, SEASONAL, INJECTA BLE, PRESERVATIVE FREE 07/10/2013 MMR (MMR II/Priorix) 11/10/2013 MMRV, Live (Proquad) 09/28/2013 PFIZER COVID VACCINE, PURPLE CAP, 12+ 11/14/2021 ,03/27/2021,03/06/2021 Pfizer-BioNTech COVID-19 Vac cine Bivalent, (DURBIN PFIZER-BIONTECH COVID-19 VACCINE BIVALENT, (DURBIN CAP 11/20/2022 TDAP 01/18/2024,09/28/2013 Td (adult), 5 Lf tetanus tox oid (Tenivac), preservative free 12/11/2013 Family History Medical History Relation Name Comments Hypertension Father Diabetes Mother Hypertension Mother Relation Name Status Comments Father Mother Social History Tobacco Use Types Packs/Day Years Used Date Smoking Tobacco: Never Passive Smoke Exposure: Never Smokeless Tobacco: Never Tobacco Cessation:Counseling Given: Not Answered Alcohol Use Standard Drinks/Week Comments No 0 (1 standard drink = 0.6 oz pur e alcohol) Social Connections Answer Date Recorded How often do you see or talk to people that you care about and feel close to? (For example: talking to friends on phone, visiting friends or family, going to christianity or club meetings) 1 08/08/2024 Financial Resource Strain Answer Date R ecorded How hard is it for you to pa y for the very basics like food, housing, heating, medical care, and medications? 2 08/08 Stress Answer Date Recorded Do you feel these kinds of stress these days? 1 08/08/2024 Physical Activity Answer Date Recorded Physical Activity 0 08/21/2020 Food Insecurity Answer Date Recorded Hard to pay for: Food 1 08/08/2024 Transportation Needs Answer Date Record ed Hard to pay for: Transportation 1 08/08/2024 Housing Stability Answer Date Recorded Hard to pay for: Rent/Mortgage payment 1 08/08/2024 Safety and Environment Answer Date Rashid rded How often does anyone, inclu ding family and friends, physically hurt you? 1 08/08/2024 Utilities Answer Date Recorded Hard to pay for: Utilities 1 08/08 Employment Answer Date Recorded Are you currently employed? 1 07/19 Comments No Sex and Gender Information Value Date Recorded Sex Assigned at Female 02/03/2018 10:06 AM PDT Legal Sex Female 4:16 PM PDT Gender Identity Female 02/03/2018 10:06 AM PDT Sexual Orientation Straight 02/03/2018 10 :06 AM PDT Last Filed Vital Signs Vital Sign Reading Time Taken Comments Blood Pressure 126/76 04/12/2025 9:42 AM EDT Pulse 78 04/12/2025 9:42 AM EDT Temperature 36.9 C (98.4 F) 03/22/2025 10:52 AM EDT Respiratory Rate 17 03/22/2025 10:52 AM EDT Oxygen Saturation 98% 02/27/2025 9:36 AM EDT Inhaled Oxygen Concentration - - Weight 86.6 kg (191 lb) 03/22/2025 10:52 AM EDT Height 160 cm (5' 3 ) 03/22/2025 10:52 AM EDT Body Mass Index 33.83 03/22/2025 10:52 AM EDT Plan of Treatment Upcoming Encounters Date Type Department Care Team (Late st Contact Info) Description 05/10/2025 11:20 AM EDT Office Visit [address] [phone] Taqueria Saunders PharmD [address] [place] [address] Quique Sanders [address] [place] [address] 05/16/2025 9:00 AM EDT Office Visit [facility] [address] [place] [phone] Pedro Benedict DDS [address] [place] [address] 06/06/2025 9:00 AM EDT Office Visit [facility] [address] [place] [phone] Jean-Paul Sanders [address] [place] [phone] Health Maintenance Due Date Last Done Comments Dental Prophy 1976 CT Colonography 2021 Colonoscopy 2021 Colorectal Cancer Screening 2021 FIT/gFOBT 2021 Fecal DNA 2021 Flexible Sigmoidoscopy 2021 HPV Screening 07/26/2023 07/26/2018 [id number] ( season) 2024 11/20/2022, 11/14/2021, 03/27/2021, Additional history exists Breast Cancer Screening (Mammogram) 07/21/2024 07/21/2023, 05/29/2021, 05/29/2021, Additional history exists Relationship Safety Screening/Counseling 08/08/2025 08/08/2024, 01/18/2024, 11/20/2022, Additional history exists Diabetes Screening 09/12/2025 09/12/2024, 0 07/06/2024, 01/18/2024, Additional history exists Tobacco Screening 01/11/2026 01/11/2025, 09/21/2023 Annual Wellness (Adult): Indicated (All Coverage) 02/27/2026 02/27/2025, 09/21/2023, 08/07/2021, Additional history exists Anxiety Screening 02/27/2026 02/27/2025 Dental BW 04/14/2026 04/12/2025 Dental Examination 04/14/2026 04/12/2025 Dental Perio Charting 04/14/2026 04/12/2025 Lipid Screening 01/17/2027 01/18/2024, 12/2022, 03/05/2021, Additional history exists Cervical Cancer Screening 01/17/2030 Pap + HPV 01/17/2030 01/17/2025, 07/26/2018 Pap Smear 01/17/2030 01/17/2025, 1006/2018, 02/13/2013 Dental FMX/Pano 04/14/2030 04/12/2025 Imm-DTaP/Tdap/Td (4 - Td or Tdap) 01/17/2034 01/18/2024, 12/11/2013, 09/28/2013 Imm-Hepatitis B Completed 04/06/2014, 11/19, 11/10/2013 HIV Screening Completed 06/21/2018, 01/2018 (Managed by Outside Provider) Hepatitis C Screening Completed 05/31/2020 Imm-Influenza Discontinued 11/14/2021, 07/10/2013 Alcohol and Drug Screen Completed 02/28/20, 01/11/2025, 01/18/2024, Additional history exists Depression Annual Screen Completed 02/27/2025, 01/16 Cervical Ablation/Cold-Knife Conization Discontinued Cervical Cryotherapy Discontinued [...] Procedure Name Priority Date/Time Associated Diagnosis Comments DENTAL CASE MANAGEMENT - MOTIVATIONAL INTV Routine 04/12/2025 9:40 AM EDT Fracture of crown, enamel, and dentin of tooth without pulp exposure INTRAORAL - COMP SERIES OF RADIOGRAPHIC IMAGES Routine 04/12/2025 9:40 AM EDT Fracture of crown, enamel, and dentin of tooth without pulp exposure COMP ORAL EVALUATION - NEW/ESTABLISHED PATIENT Routine 04/12/2025 9:40 AM EDT Fracture of crown, enamel, and dentin of tooth without pulp exposure CARIES RISK ASSESSMENT & DOC FINDING MOD RISK Routine 04/12/2025 9:40 AM EDT Fracture of crown, enamel, and dentin of tooth without pulp exposure NUTRITIONAL COUNSELING CONTROL OF DENTAL DISEASE Routine 04/12/2025 9:40 AM EDT Fracture of crown, enamel, and dentin of tooth without pulp exposure ORAL HYGIENE INSTRUCTIONS Routine 04/12/2025 9:40 AM EDT Fracture of crown, enamel, and dentin of tooth without pulp exposure ORAL CANCER SCREENING Routine 04/12/2025 9:40 AM EDT Fracture of crown, enamel, and dentin of tooth without pulp exposure CASE PRESENTATION SUBS DTL & EXTENSIVE TX PLN Routine 04/12/2025 9:40 AM EDT Fracture of crown, enamel, and dentin of tooth without pulp exposure 5 ROOT CANAL - WISDOM (NO BILLABLE) Routine 04/12/2025 12:00 AM EDT 4 ROOT CANAL - WISDOM (NO BILLABLE) Routine 04/12/2025 12:00 AM EDT 27 CROWN - PORCELAIN/CERAMIC Routine 04/12/2025 12:00 AM EDT 26 CROWN - PORCELAIN/CERAMIC Routine 04/12/2025 12:00 AM EDT 25 CROWN - PORCELAIN/CERAMIC Routine 04/12/2025 12:00 AM EDT 24 CROWN - PORCELAIN/CERAMIC Routine 04/12/2025 12:00 AM EDT 23 CROWN - PORCELAIN/CERAMIC Routine 04/12/2025 12:00 AM EDT 22 CROWN - PORCELAIN/CERAMIC Routine 04/12/2025 12:00 AM EDT 21 CROWN - PORCELAIN/CERAMIC Routine 04/12/2025 12:00 AM EDT 3 CROWN - PORCELAIN/CERAMIC Routine 04/12/2025 12:00 AM EDT 3 ROOT CANAL - WISDOM (NO BILLABLE) Routine 04/12/2025 12:00 AM EDT 28 CROWN - PORCELAIN/CERAMIC Routine 04/12/2025 12:00 AM EDT 31 CROWN - PORCELAIN/CERAMIC Routine 04/12/2025 12:00 AM EDT 20 ROOT CANAL - WISDOM (NO BILLABLE) Routine 04/12/2025 12:00 AM EDT 19 IMPLANT - WISDOM (NON BILLABLE) Routine 04/12/2025 12:00 AM EDT 18 IMPLANT - WISDOM (NON BILLABLE) Routine 04/12/2025 12:00 AM EDT 20 RETAINER CROWN - PORCELAIN/CERAMIC Routine 04/12/2025 12:00 AM EDT 19 RETAINER CROWN - PORCELAIN/CERAMIC Routine 04/12/2025 12:00 AM EDT 18 RETAINER CROWN - PORCELAIN/CERAMIC Routine 04/12/2025 12:00 AM EDT 13 PONTIC - PORCELAIN/CERAMIC Routine 04/12/2025 12:00 AM EDT 12 PONTIC - PORCELAIN/CERAMIC Routine 04/12/2025 12:00 AM EDT 14 RETAINER CROWN - PORCELAIN/CERAMIC Routine 04/12/2025 12:00 AM EDT 11 RETAINER CROWN - PORCELAIN/CERAMIC Routine 04/12/2025 12:00 AM EDT 10 CROWN - PORCELAIN/CERAMIC Routine 04/12/2025 12:00 AM EDT 9 CROWN - PORCELAIN/CERAMIC Routine 04/12/2025 12:00 AM EDT 8 CROWN - PORCELAIN/CERAMIC Routine 04/12/2025 12:00 AM EDT 7 CROWN - PORCELAIN/CERAMIC Routine 04/12/2025 12:00 AM EDT 6 CROWN - PORCELAIN/CERAMIC Routine 04/12/2025 12:00 AM EDT 5 CROWN - PORCELAIN/CERAMIC Routine 04/12/2025 12:00 AM EDT 4 CROWN - PORCELAIN/CERAMIC Routine 04/12/2025 12:00 AM EDT 5 PREFABRICATED POST AND CORE IN ADDITION TO CROWN Routine 04/12/2025 12:00 AM EDT 4 PREFABRICATED POST AND CORE IN ADDITION TO CROWN Routine 04/12/2025 12:00 AM EDT OTHER ORDERS SCANNED DOCUMENT 04/05/2025 3:00 AM EDT SURESWAB ADVANCED BACTERIAL VAGINOSIS (BV), CT/NG, TMA Routine 02/27/2025 10:05 AM EDT Vaginosis REFERRAL SCANNED DOCUMENT 02/13/2025 3:00 AM EDT THIN PREP IMAGE PAP + HPV RNA E6/E7 W/RFLX HPV 16, 18/45 Routine 01/17/2025 2:02 PM EDT Well woman exam COMPREHENSIVE METABOLIC PANEL Routine 09/12/2024 5:28 PM [...] Recently Relevant to Health Maintenance Results * OTHER ORDERS SCANNED DOCUMENT (04/05/2025 3:00 AM EDT) 04/05/2025 3:00 AM EDT Miguel Fraire [facility] SCAN OTHER ORDERS Final Result * SURESWAB ADVANCED BACTERIAL VAGINOSIS (BV), CT/NG, TMA (02/27/2025 10:05 AM EDT) SUREBENNIEAB(R) ADV BACTERIAL VAGINOSIS (BV), TMA NEGATIVE NEGATIVE [facility] CHLAMYDIA TRACHOMATIS RNA, TMA NOT DETECTED NOT DETECTED [facility] NEISSERIA GONORRHOEAE RNA, TMA NOT DETECTED NOT DETECTED [facility] COMMENT [facility] Vaginal Vaginal structure / Unknown 02/27/2025 10:05 AM EDT 02/27/2025 2:24 PM EDT Narrative [facility] - 02/28/2025 10:39 AM EDT SPECIMEN DROPPED OFF For additional information, please refer to https://education.QuickBlox/faq/UIV957 (This link is being provided for information/ educational purposes only.) Emelialysia Canas PHP SOFTWARE ENGINEER LAB - MICROBIOLOGY A MBULATORY Final Result [facility] [address] [address], [facility] [place] [employer] [employer] [address] [place] [phone] * REFERRAL SCANNED DOCUMENT (02/13/2025 3:00 AM EDT) 02/13/2025 3:00 AM EDT Larueen Manzanaresvikashnoe PHP SOFTWARE ENGINEER SCAN REFERRAL Final Result * THIN PREP IMAGE PAP + HPV RNA E6/E7 W/RFLX HPV 16, 18/45 (01/17/2025 2:02 PM EDT) CLINICAL INFORMATION See Note [employer] [employer] Comment:Routine exam LMP See Note [facility] [employer] Comment:[id number] PREV. PAP See Note [facility] Comment:NONE GIVEN PREV. BX See Note [employer] Comment:NONE GIVEN SOURCE See Note [employer] Comment:Cervix STATEMENT OF ADEQUACY See Note [employer] Comment: Satisfactory for evaluation. Endocervical/transformation zone component absent. INTERPRETATION/RESU LT See Note [employer] [facility] Comment: Cytology Results: Negative for intraepithelial lesion or malignancy. INFECTION See Note [facility] [facility] Comment: Fungal organisms morphologically consistent with Alesia spp. COMMENT See Note [facility] Comment: This Pap test has been evaluated with computer assisted technology. APARTMENT LEASING AGENT See Note [facility] Comment: KF, CT(ASCP) CT screening location: [address] [address] COMMENT [facility] HPV MRNA E6/E7 Not Detected Not Detected [facility] [facility] Comment: Methodology: Box Press Operator-Mediated Amplification This assay detects E6/E7 viral messenger RNA (mRNA) from 14 high-risk HPV types (16,18,31,33,35,39,45,51,52,56,58,59,66,68). Cervical sources are required for HPV testing. If a vaginal source from a patient who has had a total hysterectomy with removal of cervix was submitted, please contact the testing laboratory for alternative testing options. For additional information, please refer to http://education.QuickBlox/faq/RDV803y1 (This link if provided for information/ educational purposes only.) Swab Cervix uteri structure / Unknown 01/17/2025 2:02 PM EDT 01/18/2025 6:28 AM EDT Narrative [facility] - 01/20/2025 10:36 AM EDT EXPLANATORY NOTE: [...] historic and current clinical information. Romana Vivas MEDICAL OFFICE TECHNOLOGIST LAB - PATHOLOGY AND CYTOLOGY AMBULATORY Final Result [facility] [address] [address], [facility] [address] [address] * COMPREHENSIVE METABOLIC PANEL (09/12/2024 5:28 PM EST) GLUCOSE 95 65 - 99 mg/dL [employer] [facility] Comment: Fasting reference interval UREA NITROGEN (BUN) 13 7 - 25 mg/dL [facility] CREATININE (blood) 0.96 0.50 - 0.99 mg/dL [facility] EGFR 73 > OR = 60 mL/min/1. 73m2 [facility] BUN/CREATININE RATIO SEE NOTE: [facility] Comment: Not Reported: BUN and Creatinine are within reference range. SODIUM 138 135 - 146 mmol/L [facility] POTASSIUM 3.7 3.5 - 5.3 mmol/L [facility] CHLORIDE 103 98 - 110 mmol/L [facility] CARBON DIOXIDE 29 20 - 32 mmol/L [facility] CALCIUM 9.2 8.6 - 10.2 mg/dL [facility] PROTEIN, TOTAL 6.8 6.1 - 8.1 g/dL [facility] [place] [employer] ALBUMIN 4.7 3.6 - 5.1 g/dL [facility] [place] [employer] GLOBULIN 2.1 1.9 - 3.7 g/dL (calc) [facility] ALBUMIN/GLOBULI N RATIO 2.2 1.0 - 2.5 (calc) [facility] BILIRUBIN, TOTAL 0.3 0.2 - 1.2 mg/dL [facility] ALKALINE PHOSPHATASE 33 31 - 125 U/L [facility] AST 11 10 - 35 U/L [facility] ALT 12 6 - 29 U/L [employer] [facility] Blood Blood / Unknown 09/12/2024 5 :28 PM EST 09/12/2024 5:29 PM EST Laureen Hicks [facility] LAB - BLOOD DRAW Final Result [facility] [address] [address], [facility] [address] [address] * (ABNORMAL) LIPID PANEL (01/18/2024 4:19 PM EDT) CHOLESTEROL, TOTAL 205(H) <200 mg/dL [facility] HDL CHOLESTEROL 48(L) > OR = 50 mg/dL [employer] [facility] TRIGLYCERIDES 61 <150 mg/dL [facility] LDL-CHOLESTEROL 142(H) 99 mg/dL (calc) [facility] Comment: Reference range: <100 Desirable range <100 mg/dL for primary prevention; <70 mg/dL for patients with CHD or diabetic patients with > or = 2 CHD risk factors. LDL-C is now calculated using the Cat calculation, which is a validated novel method providing better accuracy than the Friedewald equation in the estimation of LDL-C. Hugo ROTH et al. FABIANA. 2013;310(19): 1128-3118 (http://education.L'Usine Ã Design.CryoLife/faq/NQJ255) CHOL/HDLC RATIO 4.3 <5.0 (calc) [employer] [facility] NON-HDL CHOLESTEROL 157(H) <130 mg/dL (calc) [employer] [facility] Comment: For patients with diabetes plus 1 major ASCVD risk factor, treating to a non-HDL-C goal of <100 mg/dL (LDL-C of <70 mg/dL) is considered a therapeutic option. Blood Blood / Unknown 01/18/2024 4 :19 PM EDT 01/18/2024 4:19 PM EDT Narrative [facility] - 01/19/2024 4:49 AM EDT FASTING:YES Laureen Leightonprudence [facility] LAB - BLOOD DRAW Final Result Performing Organization Address City/[facility]/ZIP Co de Phone Number [facility] [address] [address], [facility] [address] [phone] * HISTORIC MAMMOGRAM (07/21/2023 3:00 AM EDT) 07/21/2023 3:00 AM EDT Laureenjose Hicks [facility] IMG MAMMO Edited Result - Final * HEPATITIS C ANTIBODY (05/31/2020 8:43 AM EDT) HEPATITIS C VIRUS SCREEN NEGATIVE NEGATIVE [facility] Blood specimen (specimen) Blood / Unknown 05/31/2020 8:43 AM EDT 05/31/2020 8:50 AM EDT Narrative [facility] - 05/31/2020 1:48 PM EDT [email or web address], a member of [address] [address] [employer] - Catalina Peña MD [place] [id number] ORD# [id number] Laureenjose [facility] - BLOOD DRAW Final Result Performing Organization Address City/[facility]/ZIP Co de Phone Number [facility] [address], * PAP SMEAR W/HPV, ABSTRACTED (07/26/2018 4:03 PM EDT) PAP SMEAR INTERPRETATION NORMAL NORMAL [facility] HPV (HUMAN PAPILLOMA) NEGATIVE NEGATIVE [facility] HPV TYPE 16 NEGATIVE NEGATIVE [facility] HPV TYPE 18 NEGATIVE NEGATIVE [facility] Specimen from uterine cervix (specimen) Impressions [facility] - 07/26/2018 4:03 PM EDT [employer]inPrep Pap Negative for squamous intraepithelial lesion and malignancy HPV Negative us Provider [facility] - PATHOLOGY AND CYTOLOGY AMB ULATORY Final Result [facility] [address] [place] [id number], * HIV, ABSTRACTED (06/21/2018 4:29 PM EDT) Blood specimen (specimen) Blood / Unknown 06/21/2018 4:29 PM EDT us Provider [facility] - BLOOD DRAW Final Result [facility] [address] [place] [address], from Last 3 Months or Most Recently Relevant to Health Maintenance Insurance [employer] [place] [address] [facility] [address] [employer] Care Teams Advance Agent Relationship Specialty Start Date End Date Laureen Hicks FNP [address] [place] [id number] PCP - General Internal Medicine 08/23/19
== END 2025-05-03 11:30 | disposition home or self-care (01) ==
LOC: HO.HBS 10:38
PROVIDERS: PCP Nurse Practitioner Family; Visit Provider Physician Assistant Surgical
DX: E66.9 Obesity, unspecified (principal); Z68.34 Body mass index [BMI] 34.0-34.9, adult; Z90.3 Acquired absence of stomach [part of]; Z98.84 Bariatric surgery status
CPT/HCPCS: 99213

== ENCOUNTER → 2025-05-03 10:38 | Outpatient (BNVA) | payer MEDICAID, SELFPAY | PROVIDERS: PCP Nurse Practitioner Family; Visit Provider Physician Assistant Surgical | DX: Z98.84 Bariatric surgery status (principal) | CPT/HCPCS: 99212 ==